=== PATIENT | female | born 1995 | race African-American/Black ===

== ENCOUNTER 2017-01-15 11:45 | Emergency (ER) | payer SELFPAY ==
[2017-01-15] MEDS ORDERED: FAMOTIDINE 20 MG TABLET PO ONE (12:10)
[2017-01-15] MEDS ORDERED: PREDNISONE 20 MG TABLET PO ONE (12:10)
[2017-01-15] MEDS ORDERED: LIDOCAINE 5% (700 MG) TRANSDERMAL ADH..PATCH TP ONE (12:10)
--- NOTE | 2017-01-15 12:12 | ER Document Report ---
HPI - HPI Patient complains to provider of: Low back pain and skin rash Onset: Other Onset/Duration: Persistent Quality of pain: Achy Pain Level: 3 Context: Patient resents complaining of low back pain for the past 3 months. Patient denies any injury. Patient denies any urinary symptoms. Patient states that her back pain gets aggravated when she is at work and she has to bend over frequently to help alleviate her back pain symptoms. Patient states that she has had skin rash to her chest and abdomen area that started yesterday and is pruritic in nature. Patient denies any new foods, lotions or detergents. Patient denies any difficulty breathing or facial swelling. Associated Symptoms: Other - Skin rash, low back pain. denies: Fever, Headache , Vomiting Exacerbated by: Movement Relieved by: Denies Similar symptoms previously: No Recently seen / treated by doctor: No - ROS ROS below otherwise negative: Yes Systems Reviewed and Negative: Yes All other systems reviewed and negative - CONSTITUTIONAL Constitutional: DENIES: Fever, Chills - EENT EENT: DENIES: Sore Throat - NEURO Neurology: DENIES: Headache - CARDIOVASCULAR Cardiovascular: DENIES: Chest pain - RESPIRATORY Respiratory: DENIES: Trouble Breathing, Coughing - GASTROINTESTINAL Gastrointestinal: DENIES: Nausea - MUSCULOSKELETAL Musculoskeletal: REPORTS: Back Pain - DERM Skin Color: Normal Skin Problems: Rash Past Medical History - General Information source: Patient - Social History Smoking Status: Current Every Day Smoker Chew tobacco use (# tins/day): No Frequency of alcohol use: None Drug Abuse: None Occupation: Retail Family History: Reviewed & Not Pertinent - Medical History Medical History: Negative Renal/ Medical History: Denies: Hx Peritoneal Dialysis Surgical Hx: Negative - Immunizations Hx Diphtheria, Pertussis, Tetanus Vaccination: Yes Vertical Provider Document - CONSTITUTIONAL Agree With Documented VS: Yes Exam Limitations: No Limitations General Appearance: WD/WN, No Apparent Distress - INFECTION CONTROL TRAVEL OUTSIDE OF THE [place] IN LAST 30 DAYS: No - HEENT HEENT: Atraumatic, Normal ENT Exam, Normocephalic Notes: No angioedema, no potential airway compromise - NECK Neck: Normal Inspection, Supple. negative: Lymphadenopathy-Left, Lymphadenopathy-Right - RESPIRATORY Respiratory: Breath Sounds Normal, No Respiratory Distress, Chest Non-Tender O2 Sat by Pulse Oximetry: 96 - CARDIOVASCULAR Cardiovascular: Regular Rate, Regular Rhythm, No Murmur - GI/ABDOMEN Gastrointestinal: Abdomen Soft - BACK Back: Abnormal Inspection - Lower lumbar paraspinal tenderness, no midline tenderness, step-off or deformity. negative: CVA Tenderness-Right, CVA Tenderness-Left - MUSCULOSKELETAL/EXTREMETIES Musculoskeletal/Extremeties: ARLETTE CAPELLAN - NEURO Level of Consciousness: Awake, Alert, Appropriate Motor/Sensory: No Motor Deficit - DERM Integumentary: Warm, Dry, Rash - Urticarial skin rash to chest and abdomen Course - Re-evaluation Re-evalutation: 01/15/17 13:17 Patient advised of glucose in urine, patient states she is diabetic but ran out of her metformin. 01/15/17 13:17 The patient presents with low back pain without signs of spinal cord compression , cauda equina syndrome, infection, aneurysm, or other serious etiology. The patient is neurologically intact. Given the extremely risk of these diagnoses further testing and evaluation for these possibilities does not appear to be indicated at this time. Patient has been instructed to return if the symptoms worsen or change in any way. - Vital Signs Vital signs: Temp Pulse Resp BP Pulse Ox 98.5 F 98 16 133/75 H 96 01/15/17 11:50 01/15/17 11:50 01/15/17 11:50 01/15/17 11:50 01/15/17 11:50 Discharge - Discharge Clinical Impression: Urticaria, Hx of diabetes mellitus Low back pain Qualifiers: Chronicity: unspecified Back pain laterality: bilateral Sciatica presence: without sciatica Qualified Code(s): M54.5 - Low back pain Condition: Stable Disposition: HOME, SELF-CARE Instructions: Acute Urticaria ([facility]), Diabetes ([facility]), Use of Diphenhydramine, Glucophage ([facility]), Ice Packs ([facility]), Low Back Pain ([facility]), Steroid Medication, Warm Packs ([facility]) Additional Instructions: Return immediately for any new or worsening symptoms Followup with your primary care provider, call tomorrow to make a followup appointment Prescriptions: Cyclobenzaprine HCl [Flexeril 10 Mg Tablet] 10 mg PO TID #15 tablet Famotidine [Pepcid 20 mg Tablet] 20 mg PO BID #12 tablet Metformin HCl [Glucophage 500 mg Tablet] 500 mg PO BID #60 tablet Naproxen [Naprosyn 250 Nmg Tablet] 1 tab PO BID #14 tablet Prednisone [Deltasone 10 mg Tablet] 10 mg PO ASDIR PRN #21 tablet PRN Reason: Forms: Return to Work Referrals: [facility] [Provider Group] - Follow up tomorrow
[2017-01-15] MEDS ORDERED: KETOROLAC TROMETHAMINE 60 MG/2 ML SDV IM ONE (12:54)
[2017-01-15 12:57] LABS: APPEARANCE,URINE CLEAR; BILIRUBIN,URINE NEGATIVE (NEGATIVE); GLUCOSE, URINE >=500 mg/dL (NEGATIVE); KETONES,URINE NEGATIVE (NEGATIVE); LEUKOCYTE ESTERASE,URINE NEGATIVE (NEGATIVE); NITRITE,URINE NEGATIVE (NEGATIVE); PROTEIN,URINE NEGATIVE (NEGATIVE); UROBILINOGEN,URINE NEGATIVE mg/dL (<2.0)
[2017-01-15 13:29] VITALS: BP 122/68
== END 2017-01-15 13:28 | disposition home or self-care (01) ==
LOC: ER 11:45
DX: M54.5 Low back pain (principal); L50.9 Urticaria, unspecified; E11.9 Type 2 diabetes mellitus without complications; R21 Rash and other nonspecific skin eruption; F17.200 Nicotine dependence, unspecified, uncomplicated
CPT/HCPCS: 99283; 96372; 81001; J1885; J7512

== ENCOUNTER 2017-05-13 12:00 | Emergency (ER) | payer SELFPAY ==
[2017-05-13 12:49] VITALS: BP 117/72
[2017-05-13] MEDS ORDERED: DIPHENHYDRAMINE HCL 25 MG CAPSULE PO ONE (13:44)
[2017-05-13] MEDS ORDERED: PREDNISONE 20 MG TABLET PO ONE (13:44)
--- NOTE | 2017-05-13 13:49 | ER Document Report ---
ED Skin Rash/Insect Bite/Abscs - General Chief Complaint: Rash Stated Complaint: RASH Time Seen by Provider: 05/13/17 13:38 Mode of Arrival: Ambulatory Information source: Patient TRAVEL OUTSIDE OF THE [place] IN LAST 30 DAYS: No - HPI Patient complains to provider of: Skin rash/lesion Onset: Yesterday Onset/Duration: Sudden Quality of pain: No pain Severity: Moderate Skin Character: Erythema Quality of rash: Itchy Identify cause: No Notes: Patient arrives with complaints of hive type rash to the right upper arm, right lower leg. She states that the area is red, swollen and itchy. She denies any difficulty breathing or swallowing. She denies any nausea, vomiting, diarrhea. She denies any new soaps, detergents, lotions, medications, foods. She states that she has had an episode similar to this in the past. She is unaware of any specific allergies. She denies any tongue swelling or lip swelling. She has tried no medications. She denies any other complaints at this time. - Related Data Allergies/Adverse Reactions: No Known Allergies Allergy (Verified 02/24/17 21:52) Past Medical History - Social History Smoking Status: Unknown if Ever Smoked Family History: Reviewed & Not Pertinent Endocrine Medical History: Reports: Hx Diabetes Mellitus Type 2 - no currently taking medication Renal/ Medical History: Denies: Hx Peritoneal Dialysis - Immunizations Hx Diphtheria, Pertussis, Tetanus Vaccination: Yes Review of Systems - Review of Systems -: Yes All other systems reviewed and negative Physical Exam - Vital signs Vitals: Temp Pulse Resp BP Pulse Ox 97.5 F 88 18 117/72 98 05/13/17 12:48 05/13/17 12:48 05/13/17 12:48 05/13/17 12:48 05/13/17 12:48 - Notes Notes: GENERAL: alert, cooperative, nontoxic, no distress. HEAD: normocephalic, atraumatic EYES: conjunctiva pink without discharge, no external redness or swelling. EARS: no external swelling, no external redness NOSE: atraumatic, no external swelling MOUTH/THROAT: mucous membranes moist and pink. No intraoral lesions. No tongue or lip swelling. No trismus or drooling. NECK: soft, supple, full range of motion, no meningismus. CHEST: no distress, lungs clear and equal throughout. No wheezing, rales, rhonchi. CARDIAC: regular rate and rhythm, no murmur, normal capillary refill, normal pulses. BACK: full range of motion, no CVA tenderness. EXTREMITIES: full range of motion of all extremities. No redness, no swelling. NEURO: alert and oriented 3, no focal deficits, full range of motion of all extremities. PYSCH: appropriate mood, affect. Patient is cooperative. SKIN: pink, warm, dry. Large urticarial lesions to the right deltoid, right anterior chest, right lateral thigh. No abscess. No target lesions. No petechiae. No vesicles. Nontender to palpation. No sloughing of the skin. Course - Re-evaluation Re-evalutation: 05/13/17 13:46 Patient is nontoxic appearing with stable vitals. The patient has an urticarial rash to the arm and leg. Most likely consistent with an allergic reaction. She is in no distress, no lip or tongue swelling, no difficulty breathing or swallowing. She has no other systemic symptoms. Patient will be given a dose of prednisone and steroids here in the emergency department will be discharged home with a prescription for prednisone and instructions to take [id number] antihistamines. Follow-up if not improving in the next 3 days , sooner for worsening symptoms, high fever, difficulty breathing or swallowing , or for any further concerns. Patient will be referred to primary care in hopes that she can get established with an trauma coordinator for possible allergy testing since she has had 2 episodes of this. The patient's emergency department workup and current diagnosis were explained to the patient and or family. Follow-up instructions were provided. Medications if prescribed were discussed. Instructions for when to return to the emergency department including specific worrisome symptoms were discussed with the patient and/or family. - Vital Signs Vital signs: Temp Pulse Resp BP Pulse Ox 97.5 F 88 18 117/72 98 05/13/17 12:48 05/13/17 12:48 05/13/17 12:48 05/13/17 12:48 05/13/17 12:48 Discharge - Discharge Clinical Impression: Urticaria Condition: Stable Disposition: HOME, SELF-CARE Instructions: Acute Urticaria ([facility]) Additional Instructions: Take medications as prescribed. Take [id number] antihistamine such as Benadryl as directed. Apply ice or cool compresses to the rash. Follow-up if not improving in the next 3 days, sooner for worsening rash, high fever, difficulty breathing or swallowing, or for any further concerns. Prescriptions: Prednisone [Deltasone 20 mg Tablet] 3 tab PO DAILY 5 Days tablet Forms: Smoking Cessation Education Referrals: [facility] [Provider Group] - Follow up as needed
== END 2017-05-13 13:40 | disposition home or self-care (01) ==
LOC: ER 12:00
DX: L50.9 Urticaria, unspecified (principal); E11.9 Type 2 diabetes mellitus without complications
CPT/HCPCS: 99282; J7512

== ENCOUNTER 2017-06-10 15:30 | Emergency (ER) | payer SELFPAY ==
[2017-06-10] MEDS ORDERED: IBUPROFEN 800 MG TABLET PO ONE (17:07)
--- NOTE | 2017-06-10 17:13 | ER Document Report ---
ED Extremity Problem, Lower - General Chief Complaint: Foot Pain Stated Complaint: FOOT PAIN Time Seen by Provider: 06/10/17 16:39 Mode of Arrival: Ambulatory Information source: Patient Notes: 22-year-old female presents to ED for complaint left foot pain. She states she got up to the bathroom last night and fell she states she been in her foot and felt like there was something in the bottom of her foot. She states she went to work this morning and has been working on her foot she is able to walk with the even steady gait. But she states she is having extreme pain to her foot and is now running up her ankle. She states she took 400 mg of ibuprofen last night for the pain TRAVEL OUTSIDE OF THE [place] IN LAST 30 DAYS: No - HPI Patient complains to provider of: Injury, Pain Location: Ankle, Foot Occurred: This morning Where: Indoors - 4 AM Onset/Duration: Gradual Quality of pain: Sharp Severity: Moderate Pain Level: 4 Context: Fell Recent injury: Possibly Associated symptoms: Painful ambulation Exacerbated by: Hanging down, Movement, Walking Relieved by: Nothing - Related Data Allergies/Adverse Reactions: No Known Allergies Allergy (Verified 06/10/17 15:38) Past Medical History - General Information source: Patient - Social History Smoking Status: Current Every Day Smoker Cigarette use (# per day): Yes - 5 cigarettes a day Chew tobacco use (# tins/day): No Smoking Education Provided: Yes - 4 minutes Frequency of alcohol use: Occasional Drug Abuse: None Occupation: [employer] Lives with: Alone Family History: Arthritis, DM, Hypertension. denies: CAD, COPD, CVA, Hyperlipidemia, Malignancy, Thyroid Disfunction Patient has suicidal ideation: No Patient has homicidal ideation: No - Past Medical History Cardiac Medical History: Reports: None Pulmonary Medical History: Reports: None EENT Medical History: Reports: None Neurological Medical History: Reports: None Endocrine Medical History: Reports: Hx Diabetes Mellitus Type 2 - no currently taking medication Renal/ Medical History: Reports: None Malignancy Medical History: Reports: None GI Medical History: Reports: None Musculoskeltal Medical History: Reports None Skin Medical History: Reports None Psychiatric Medical History: Reports: None Traumatic Medical History: Reports: None Infectious Medical History: Reports: None Surgical Hx: Negative Past Surgical History: Reports: None - Immunizations Immunizations up to date: Yes Hx Diphtheria, Pertussis, Tetanus Vaccination: Yes Review of Systems - Review of Systems Notes: Constitutional: [PRESENT: as per HPI. ABSENT: chills, fever(s), headache(s), weight gain, weight loss] Eyes: [ABSENT: visual disturbances] Ears: [ABSENT: hearing changes] Cardiovascular: [ABSENT: chest pain, dyspnea on exertion, edema, orthropnea, palpitations] Respiratory: [ABSENT: cough, hemoptysis] Gastrointestinal: [ABSENT: abdominal pain, constipation, diarrhea, hematemesis, hematochezia, nausea, vomiting] Genitourinary: [ABSENT: dysuria, hematuria] Musculoskeletal: Pain to left foot and ankle no swelling noted Integumentary: [ABSENT: rash, wounds] Neurological: [ABSENT: abnormal gait, abnormal speech, confusion, dizziness, focal weakness, syncope] Psychiatric: [ABSENT: anxiety, depression, homicidal ideation, suicidal ideation ] Endocrine: [ABSENT: cold intolerance, heat intolerance, menstrual abnormalities , polydipsia, polyuria] Hematologic/Lymphatic: [ABSENT: easy bleeding, easy bruising, lymphadenopathy] Physical Exam - Vital signs Vitals: Temp Pulse BP Pulse Ox 98.9 F 108 H 125/79 98 06/10/17 15:42 06/10/17 15:42 06/10/17 15:42 06/10/17 15:42 - Notes Notes: PHYSICAL EXAMINATION: GENERAL: Well-appearing, well-nourished and in no acute distress. HEAD: Atraumatic, normocephalic. EYES: Pupils equal round and reactive to light, extraocular movements intact, conjunctiva are normal. ENT: Nares patent, oropharynx clear without exudates. Moist mucous membranes. NECK: Normal range of motion, supple without lymphadenopathy LUNGS: Breath sounds clear to auscultation bilaterally and equal. No wheezes rales or rhonchi. HEART: Regular rate and rhythm without murmurs ABDOMEN: Soft, nontender, nondistended abdomen. No guarding, no rebound. No masses appreciated. Female : deferred Musculoskeletal: Normal range of motion, no pitting or edema. No cyanosis. Tenderness to left metacarpals. She states when you palpate the foot that it causes pain to go up the leg. NEUROLOGICAL: Cranial nerves grossly intact. Normal speech, normal gait. Normal sensory, motor exams PSYCH: Normal mood, normal affect. SKIN: Warm, Dry, normal turgor, no rashes or lesions noted. - General General appearance: Alert - Extremities General lower extremity: No: Julio Cesar's sign Course - Vital Signs Vital signs: Temp Pulse Resp BP Pulse Ox 98.9 F 88 16 120/70 96 06/10/17 15:42 06/10/17 18:00 06/10/17 18:00 06/10/17 18:00 06/10/17 18:00 Discharge - Discharge Clinical Impression: Left foot pain Condition: Stable Disposition: HOME, SELF-CARE Additional Instructions: You were seen today for sharp pains in your left foot since yesterday. Your x-rays do not show any radiological injuries to your foot. There is no redness or swelling or any signs of infection to your foot. You do have calluses to your foot. I have recommended that she use some Epson salt soaks for your foot pain and follow-up with a podiatry professor. I would be careful treating your feet yourself as you have a history of diabetes. Ibuprofen Ibuprofen is an excellent, safe drug for pain control. In addition, it has potent antiinflammatory effects which are beneficial, especially in the treatment of injuries, arthritis, or tendonitis. It's best to take ibuprofen with food. Persons with ulcer disease or allergy to aspirin should notify their physician of this before taking ibuprofen. Take the medication exactly as prescribed. Don't take additional doses unless instructed to do so by your doctor. If you develop wheezing, shortness of breath, hives, faintness, stomach pain, vomiting, or dark black stools, return for re-evaluation at once. Epsom Salt Soaks Soak the wound area in a container of warm epsom salt water. If you can't get the wound area into a bucket or glass, use a folded towel soaked in the epsom salt solution and apply to the area. Use clean hot tap water (about the temperature of a very warm bath), mixing in about one (1) teaspoon for every pint of water. Two gallon --> 16 teaspoons Epsom Salts One gallon --> 8 teaspoons Epsom Salts Two quarts --> 4 teaspoons Epsom Salts One quart --> 2 teaspoons Epsom Salts Soak the wound for about 20 minutes while gently moving it around in the water. Repeat this four (4) times a day. Ice & Elevation Apply ice packs frequently against the painful area. Many different schedules are recommended, such as "20 minutes on, 20 minutes off" or "one hour ice, two hours rest." If you need to work, you may need to go longer between ice treatments. You should plan to have the area ice packed AT LEAST one- fourth of the time. The ice should be applied over the wrap, tape, or splint, or over a layer of cloth -- not directly against the skin. Some ice bags have a built-in cloth and can be put directly on the skin. Your injured part should be elevated as much as possible over the next 48 hours. Try to keep the injury above the level of the heart. Avoid use of the injured area. Elevation and rest will decrease the swelling. FOLLOW-UP CARE: If you have been referred to a physician for follow-up care, call the physician s office for an appointment as you were instructed or within the next two days. If you experience worsening or a significant change in your symptoms, notify the physician immediately or return to the Emergency Department at any time for re-evaluation. Prescriptions: Ibuprofen 600 mg PO Q8HP PRN #20 tablet PRN Reason: Referrals: JOHNATHON FOX DPM [ACTIVE STAFF] - Follow up as needed
--- NOTE | 2017-06-10 17:44 | RADIOLOGY REPORT (SQ) ---
EXAM DESCRIPTION: FOOT LEFT COMPLETE COMPLETED DATE/TIME: 06/10/2017 5:35 pm REASON FOR STUDY: pain fall COMPARISON: None. NUMBER OF VIEWS: Three views. TECHNIQUE: AP, lateral and oblique radiographic images acquired of the left foot. LIMITATIONS: None. FINDINGS: MINERALIZATION: Normal. BONES: No acute fracture or dislocation. No worrisome bone lesions. JOINTS: No effusions. SOFT TISSUES: No soft tissue swelling. No foreign body. OTHER: No other significant finding. IMPRESSION: NO RADIOGRAPHIC EVIDENCE OF ACUTE INJURY. TECHNICAL DOCUMENTATION: JOB ID: [id number] [employer]- All Rights Reserved
[2017-06-10 18:45] VITALS: BP 120/70
== END 2017-06-10 18:10 | disposition home or self-care (01) ==
LOC: ER 15:30
DX: M79.672 Pain in left foot (principal); W19.XXXA Unspecified fall, initial encounter; F17.210 Nicotine dependence, cigarettes, uncomplicated
CPT/HCPCS: 99283; 99406

== ENCOUNTER 2018-06-15 14:19 | Emergency (ER) | payer SELFPAY ==
[2018-06-15] MEDS ORDERED: ACETAMINOPHEN 325 MG TABLET PO ONE (16:18)
[2018-06-15] MEDS ORDERED: CEFTRIAXONE 1 GM/D5W RTU 1 GM/50 ML RTUPB IV ONE (16:18)
[2018-06-15] MEDS ORDERED: NORMAL SALINE 1000 ML 2,000 ML IV ONE (16:18)
[2018-06-15] MEDS ORDERED: MORPHINE SULFATE 10 MG/ML INJ IV ONE ×2 (16:19→18:29)
[2018-06-15] MEDS ORDERED: ONDANSETRON HCL INJ/PF 4 MG/2 ML SDV IV ONE (16:20)
--- NOTE | 2018-06-15 16:22 | ER Document Report ---
ED Skin Rash/Insect Bite/Abscs - General Chief Complaint: Arm Pain Stated Complaint: LEFT ARM PAIN Time Seen by Provider: 06/15/18 15:57 Primary Care Provider: JULIET [facility] [Provider Group] - Follow up as needed [facility] [Provider Group] - Follow up as needed Mode of Arrival: Ambulatory Information source: Patient Notes: Patient presents complaining of infection under her left axilla that is been developing over the past week. Patient states she had a fever today. Patient reports seeing her primary doctor for this issue 3 days ago and being placed on antibiotics. Patient denies any improvement of her symptoms. Patient does report that her blood sugar has been running elevated at home. TRAVEL OUTSIDE OF THE [place] IN LAST 30 DAYS: No - HPI Patient complains to provider of: Tender/swollen area Onset/Duration: Worse Quality of pain: Sharp Pain Level: 5 Skin Character: Abscess, Swelling, Tenderness Skin Temperature: Warm Quality of rash: Painful Identify cause: No Exacerbated by: Movement Relieved by: Denies Similar symptoms previously: No Recently seen / treated by doctor: Yes - Related Data Allergies/Adverse Reactions: No Known Allergies Allergy (Verified 06/15/18 14:21) Past Medical History - General Information source: Patient - Social History Smoking Status: Current Every Day Smoker Smoking Education Provided: Yes Frequency of alcohol use: None Drug Abuse: None Occupation: Retail Family History: Arthritis, DM, Hypertension. denies: CAD, COPD, CVA, Hyperlipidemia, Malignancy, Thyroid Disfunction Patient has suicidal ideation: No Patient has homicidal ideation: No Endocrine Medical History: Reports: Hx Diabetes Mellitus Type 2 Renal/ Medical History: Denies: Hx Peritoneal Dialysis Surgical Hx: Negative - Immunizations Immunizations up to date: Yes Hx Diphtheria, Pertussis, Tetanus Vaccination: Yes Review of Systems - Review of Systems Constitutional: Fever EENT: No symptoms reported Cardiovascular: No symptoms reported. denies: Chest pain Respiratory: No symptoms reported. denies: Cough, Short of breath Gastrointestinal: No symptoms reported. denies: Vomiting Genitourinary: No symptoms reported Female Genitourinary: No symptoms reported Musculoskeletal: No symptoms reported. denies: Back pain Skin: Other - Abscess to left axilla Hematologic/Lymphatic: No symptoms reported Neurological/Psychological: No symptoms reported Physical Exam - Vital signs Vitals: Temp Pulse Resp BP Pulse Ox 100.3 F 124 H 14 135/83 H 97 06/15/18 14:36 06/15/18 14:36 06/15/18 14:36 06/15/18 14:36 06/15/18 14:36 - General General appearance: Appears well, Alert In distress: Mild - HEENT Head: Normocephalic, Atraumatic Eyes: Normal Conjunctiva: Normal Nasal: Normal Mouth/Lips: Normal Mucous membranes: Normal Neck: Normal, Supple. No: Lymphadenopathy - Respiratory Respiratory status: No respiratory distress Chest status: Nontender Breath sounds: Normal. No: Rales, Rhonchi, Stridor, Wheezing Chest palpation: Normal - Cardiovascular Rhythm: Tachycardia Heart sounds: S1 appreciated, S2 appreciated Murmur: No - Back Back: Normal - Extremities General upper extremity: Tender - L axilla, Normal strength General lower extremity: Normal inspection, Normal strength - Neurological Neuro grossly intact: Yes Cognition: Normal [place] Coma Scale Eye Opening: Spontaneous [place] Coma Scale Verbal: Oriented [place] Coma Scale Motor: Obeys Commands [place] Coma Scale Total: 15 - Psychological Associated symptoms: Normal affect, Normal mood - Skin Skin Temperature: Warm Skin Moisture: Dry Skin irregularity: Abscess - Large abscess to left axilla with central fluctuant area surrounded by a large area of induration. Course - Re-evaluation Re-evalutation: 06/15/18 16:20 Dr. Valderrama to bedside with ultrasound for examination. Agrees with plan for bedside incision and drainage procedure. No surgical consultation advised at this time. 06/15/18 19:21 Incision and drainage procedure performed. Patient with large amount of purulent drainage. Patient tolerated procedure well. Labs reviewed, no concern for sepsis at this time. Patient educated on new or worsening symptoms return m edially for. Patient advised that infection may make her blood sugar elevated. - Vital Signs Vital signs: Temp Pulse Resp BP Pulse Ox 99.1 F 95 21 H 125/73 96 06/15/18 19:53 06/15/18 19:55 06/15/18 19:53 06/15/18 19:53 06/15/18 19:53 - Laboratory Result Diagrams: 06/15/18 17:00 06/15/18 17:00 Laboratory results interpreted by me: 06/15/18 06/15/18 06/15/18 15:20 17:00 17:00 WBC 17.7 H RBC 5.45 H MCV 79 L MCH 26.5 L Lymphocytes % 11.6 L Absolute Neutrophils 13.7 H Absolute Monocytes 1.8 H Sodium 132.0 L Chloride 96 L Glucose 266 H Alkaline Phosphatase 143 H Urine Protein 100 H Urine Glucose (UA) >=500 H Urine Ketones 20 H Urine Blood LARGE H Urine Urobilinogen 2.0 H Labs- Entire Visit 06/15/18 06/15/18 06/15/18 15:20 17:00 17:00 WBC 17.7 H RBC 5.45 H Hgb 14.4 Hct 43.2 MCV 79 L MCH 26.5 L MCHC 33.5 RDW 13.9 Plt Count 282 Seg Neutrophils % 77.7 Lymphocytes % 11.6 L Monocytes % 10.3 Eosinophils % 0.2 Basophils % 0.2 Absolute Neutrophils 13.7 H Absolute Lymphocytes 2.1 Absolute Monocytes 1.8 H Absolute Eosinophils 0.0 Absolute Basophils 0.0 PT 14.5 INR 1.08 VBG pH VBG pCO2 VBG HCO3 VBG Base Excess Sodium Potassium Chloride Carbon Dioxide Anion Gap BUN Creatinine Est GFR ( Amer) Est GFR (Non-Af Amer) Glucose Lactic Acid Calcium Total Bilirubin Direct Bilirubin Neonat Total Bilirubin Neonat Direct Bilirubin Neonat Indirect Bili AST ALT Alkaline Phosphatase Total Protein Albumin Urine Color YELLOW Urine Appearance SLIGHTLY-CLOUDY Urine pH 6.0 Ur Specific [place] 1.023 Urine Protein 100 H Urine Glucose (UA) >=500 H Urine Ketones 20 H Urine Blood LARGE H Urine Nitrite NEGATIVE Urine Bilirubin NEGATIVE Urine Urobilinogen 2.0 H Ur Leukocyte Esterase NEGATIVE Urine WBC (Auto) 2 Urine RBC (Auto) 9 Squamous Epi Cells Auto 3 Urine Mucus (Auto) OCC Urine Ascorbic Acid NEGATIVE 06/15/18 06/15/18 06/15/18 17:00 17:00 17:00 WBC RBC Hgb Hct MCV MCH MCHC RDW Plt Count Seg Neutrophils % Lymphocytes % Monocytes % Eosinophils % Basophils % Absolute Neutrophils Absolute Lymphocytes Absolute Monocytes Absolute Eosinophils Absolute Basophils PT INR VBG pH 7.41 VBG pCO2 44.0 VBG HCO3 27.1 VBG Base Excess 2.0 Sodium 132.0 L Potassium 3.8 Chloride 96 L Carbon Dioxide 27 Anion Gap 9 BUN 10 Creatinine 0.55 Est GFR ( Amer) > 60 Est GFR (Non-Af Amer) > 60 Glucose 266 H Lactic Acid 0.9 Calcium 9.6 Total Bilirubin 0.7 Direct Bilirubin 0.2 Neonat Total Bilirubin Not Reportable Neonat Direct Bilirubin Not Reportable Neonat Indirect Bili Not Reportable AST 14 ALT 23 Alkaline Phosphatase 143 H Total Protein 7.1 Albumin 4.2 Urine Color Urine Appearance Urine pH Ur Specific [place] Urine Protein Urine Glucose (UA) Urine Ketones Urine Blood Urine Nitrite Urine Bilirubin Urine Urobilinogen Ur Leukocyte Esterase Urine WBC (Auto) Urine RBC (Auto) Squamous Epi Cells Auto Urine Mucus (Auto) Urine Ascorbic Acid - Diagnostic Test Radiology reviewed: Reports reviewed - EKG Interpretation by Me EKG shows normal: Sinus rhythm Rate: Tachycardia Procedures - Incision and Drainage Left Arm Type: Simple Anesthetic type: 1% Lidocaine Blade size: 11 I&D procedure: Betadine prep applied Incision Method: Incision made by scalpel Amount/type of drainage: Large amount of purulent drainage from abscess Discharge - Discharge Clinical Impression: Abscess, Encounter for incision and drainage procedure, Hyperglycemia Condition: Stable Disposition: HOME, SELF-CARE Instructions: Abscess ([facility]), Cephalexin ([facility]), Oral Narcotic Medication ([facility]), Post Incision and Drainage, Trimethoprim-Sulfa ([facility]) Additional Instructions: Return immediately for any new or worsening symptoms Followup with your primary care provider, call tomorrow to make a followup appointment Change dressing daily Continue to take your Keflex as previously prescribed. You should also take the Bactrim that was prescribed this evening. Return for any new or worsening symptoms, persistent fever or lack of improvement. Prescriptions: Oxycodone HCl/Acetaminophen [Percocet 5-325 mg Tablet] 1 tab PO ASDIR PRN #10 tablet PRN Reason: Sulfamethoxazole/Trimethoprim [Bactrim Ds Tablet] 1 each PO BID #20 tablet Forms: Smoking Cessation Education, Return to Work Referrals: [facility] [Provider Group] - Follow up as needed [facility] [Provider Group] - Follow up as needed
--- NOTE | 2018-06-15 16:53 | RADIOLOGY REPORT (SQ) ---
EXAM DESCRIPTION: CHEST 2 VIEWS COMPLETED DATE/TIME: 06/15/2018 4:33 pm REASON FOR STUDY: fever, tachycardic COMPARISON: None. EXAM PARAMETERS: NUMBER OF VIEWS: two views TECHNIQUE: Digital Frontal and Lateral radiographic views of the chest acquired. RADIATION DOSE: NA LIMITATIONS: none FINDINGS: LUNGS AND PLEURA: No opacities, masses or pneumothorax. No pleural effusion. MEDIASTINUM AND HILAR STRUCTURES: No masses or contour abnormalities. HEART AND VASCULAR STRUCTURES: Heart normal size. No evidence for failure. BONES: No acute findings. HARDWARE: None in the chest. OTHER: No other significant finding. IMPRESSION: NO ACUTE RADIOGRAPHIC FINDING IN THE CHEST. TECHNICAL DOCUMENTATION: JOB ID: [id number] [employer]- All Rights Reserved Reading location - IP/workstation name: [email or web address]
[2018-06-15 17:27] LABS: ABSOLUTE LYMPHOCYTES (AUTO) 2.1 10^3/uL (0.5-4.7); ABSOLUTE MONOCYTES (AUTO) 1.8 10^3/uL (0.1-1.4); ABSOLUTE NEUT (AUTO) 13.7 10^3/uL (1.7-8.2); BASOPHILS % (AUTO) 0.2 % (0-2); EOSINOPHILS % (AUTO) 0.2 % (0-6); HEMATOCRIT 43.2 % (36.0-47.0); HEMOGLOBIN 14.4 g/dL (12.0-15.5); LYMPHOCYTES % (AUTO) 11.6 % (13-45); MEAN CORPUSCULAR HEMOGLOBIN 26.5 pg (27.0-33.4); MEAN CORPUSCULAR HGB CONC 33.5 g/dL (32.0-36.0); MEAN CORPUSCULAR VOLUME 79 fl (80-97); MONOCYTES % (AUTO) 10.3 % (3-13); PLATELET COUNT 282 10^3/uL (150-450); RED BLOOD COUNT 5.45 10^6/uL (3.72-5.28); RED CELL DISTRIBUTION WIDTH 13.9 % (11.5-14.0); SEGMENTED NEUTROPHILS % (AUTO) 77.7 % (42-78); TOTAL CELLS COUNTED % (AUTO) 100 %; WHITE BLOOD COUNT 17.7 10^3/uL (4.0-10.5)
[2018-06-15 17:28] LABS: VENOUS BLOOD HCO3 27.1 mmol/L (20-32); VENOUS BLOOD PH 7.41 (7.30-7.42)
[2018-06-15 17:40] LABS: INTERNATIONAL RATION (INR) 1.08; PROTHROMBIN TIME 14.5 SEC (11.4-15.4)
[2018-06-15 17:52] LABS: ALANINE AMINOTRANSFERASE 23 U/L (9-52); ALBUMIN 4.2 g/dL (3.5-5.0); ALKALINE PHOSPHATASE 143 U/L (38-126); ANION GAP 9 (5-19); ASPARTATE AMINO TRANSFERASE 14 U/L (14-36); BILIRUBIN,DIRECT 0.2 mg/dL (0.0-0.4); BILIRUBIN,TOTAL 0.7 mg/dL (0.2-1.3); BLOOD UREA NITROGEN 10 mg/dL (7-20); CALCIUM 9.6 mg/dL (8.4-10.2); CARBON DIOXIDE 27 mmol/L (22-30); CHLORIDE 96 mmol/L (98-107); GLUCOSE 266 mg/dL (75-110); POTASSIUM 3.8 mmol/L (3.6-5.0); TOTAL PROTEIN 7.1 g/dL (6.3-8.2)
--- NOTE | 2018-06-15 17:54 | EKG REPORT ---
SEVERITY:- ABNORMAL ECG - SINUS TACHYCARDIA NONSPECIFIC T ABNORMALITIES, ANTERIOR LEADS : Confirmed by: Cj Dunaway MD 15-Jun-2018 17:54:11
[2018-06-15] MEDS ORDERED: SULFAMETHOXAZOLE/TRIMETHOPRIM 800-160 MG TABLET PO ONE (18:29)
[2018-06-15 18:36] LABS: APPEARANCE,URINE SLIGHTLY-CLOUDY; BILIRUBIN,URINE NEGATIVE (NEGATIVE); COLOR,URINE YELLOW; GLUCOSE, URINE >=500 mg/dL (NEGATIVE); KETONES,URINE 20 mg/dL (NEGATIVE); LEUKOCYTE ESTERASE,URINE NEGATIVE (NEGATIVE); NITRITE,URINE NEGATIVE (NEGATIVE); PROTEIN,URINE 100 mg/dL (NEGATIVE); URINE SPECIFIC GRAVITY 1.023
[2018-06-15 19:47] VITALS: BP 125/73
--- NOTE | 2018-06-16 09:41 | ER Document Report ---
Doctor's Note Notes: I personally and independently obtained patient history and examined the patient in conjunction with the APC and agree with the assessment, treatment plan and disposition of the patient as recorded by the APC, and have reviewed the APC's note. HISTORY OF PRESENT ILLNESS: Patient is a 23-year-old female that presents to the emergency department for chief complaint of abscess in the left axilla. Patient seen by her primary care recently and placed on Keflex, for an abscess in her left axilla, but symptoms got worse, it enlarged that she decided come to the emergency department. ROS: Constitutional: Negative for fever. Cardiovascular: Negative for chest pain. Respiratory: Negative for shortness of breath. Gastrointestinal: Negative for vomiting or abdominal pain Musculoskeletal: Negative for arm, leg or back pain Skin: Negative for rash. Neurological: Negative for weakness or numbness. Other than noted above, the 12 point review of systems was reviewed with the patient and were negative, all pertinent findings are included in the HPI. PHYSICAL EXAMINATION: Vital signs reviewed, nursing noted reviewed. GENERAL: Well-appearing, well-nourished and in no acute distress. HEAD: Atraumatic, normocephalic. EYES: Eyes appear normal, conjunctiva are normal. ENT: nares patent, oropharynx clear without exudates. Moist mucous membranes. NECK: Normal range of motion, supple without lymphadenopathy LUNGS: Breath sounds clear to auscultation bilaterally and equal. No wheezes rales or rhonchi. HEART: Regular rate and rhythm without murmurs ABDOMEN: Soft, nontender, normoactive bowel sounds. No rebound, guarding, or rigidity. No masses appreciated. EXTREMITIES: Under the left axilla, there is a fluctuant abscess, with surrounding induration, tender to palpate and mild erythema associated as well. No active drainage at this time, no axillary lymphadenopathy was appreciated, the rest the patient's extremity exam is grossly unremarkable. NEUROLOGICAL: No focal neurological deficits. Moves all extremities spontaneously Motor and sensory grossly intact on exam. PSYCH: Normal mood, normal affect. SKIN: Warm, Dry, normal turgor, no rashes or lesions noted on exposed MEDICAL DECISION MAKING: Patient seen and examined, vital signs reviewed, under ultrasound, the patient's right axilla was examined, there is a 3-1/2 x 3-1/2 x 2 cm abscess noted with surrounding induration, discussed with Jo NUNEZ that I feel that this could be I indeed in the emergency department, which she agreed, patient had an I&D performed, tolerated well, and was discharged home on antibiotics. Please review detail APC documentation. *Note is created using voice recognition software and may contain spelling, syntax or grammatical errors.
== END 2018-06-15 19:55 | disposition home or self-care (01) ==
LOC: ER 14:19
PROC: 0H9CXZZ Drainage of Left Upper Arm Skin, External Approach (ICD-10-PCS; principal; 2018-06-15)
DX: L02.412 Cutaneous abscess of left axilla (principal); E11.65 Type 2 diabetes mellitus with hyperglycemia; R50.9 Fever, unspecified; F17.200 Nicotine dependence, unspecified, uncomplicated
CPT/HCPCS: 93005; 96376; 99284; 96375; 96365; 36415; 87040; 87086; 82962; 85025; 85610; 87088; 80053; 81001; 87186; 82803; 83605; 71046; 93010; 10060; J2270; J2405; J7030; J0696

== ENCOUNTER 2018-08-31 10:53 | Emergency (ER) | payer SELFPAY ==
[2018-08-31 13:12] LABS: APPEARANCE,URINE SLIGHTLY-CLOUDY; BILIRUBIN,URINE NEGATIVE (NEGATIVE); COLOR,URINE YELLOW; GLUCOSE, URINE >=500 mg/dL (NEGATIVE); KETONES,URINE NEGATIVE (NEGATIVE); LEUKOCYTE ESTERASE,URINE SMALL (NEGATIVE); NITRITE,URINE NEGATIVE (NEGATIVE); PROTEIN,URINE 30 mg/dL (NEGATIVE); URIC ACID CRYSTALS,URINE FEW /HPF; URINE SPECIFIC GRAVITY 1.013; UROBILINOGEN,URINE NEGATIVE mg/dL (<2.0)
--- NOTE | 2018-08-31 13:56 | ER Document Report ---
HPI - HPI Patient complains to provider of: Sharp stomach pains Time Seen by Provider: 08/31/18 12:22 Onset: Other - 2 days Quality of pain: Sharp Severity: Severe Pain Level: 4 Context: Patient presents emergency department with complaints of sharp stomach pains for the past 2 days. Reports pain occurs after she voids. Reports urinary frequency. Denies fever vomiting reports some diarrhea for the last couple days. Denies past medical history denies vaginal discharge. Associated Symptoms: Diarrhea Exacerbated by: Other - after avoid Relieved by: Denies Similar symptoms previously: No Recently seen / treated by doctor: No - URINARY Urinary: REPORTS: Frequency - REPRODUCTIVE Reproductive: DENIES: : Past Medical History - General Information source: Patient Last Menstrual Period: July - Social History Smoking Status: Current Every Day Smoker Chew tobacco use (# tins/day): No Frequency of alcohol use: None Drug Abuse: None Family History: Arthritis, DM, Hypertension. denies: CAD, COPD, CVA, Hyperlipidemia, Malignancy, Thyroid Disfunction Patient has suicidal ideation: No Patient has homicidal ideation: No - Medical History Medical History: Negative Renal/ Medical History: Denies: Hx Peritoneal Dialysis Surgical Hx: Negative - Immunizations Immunizations up to date: Yes Hx Diphtheria, Pertussis, Tetanus Vaccination: Yes Vertical Provider Document - CONSTITUTIONAL Agree With Documented VS: Yes Exam Limitations: No Limitations General Appearance: WD/WN, No Apparent Distress - Nontoxic looking - INFECTION CONTROL TRAVEL OUTSIDE OF THE [place] IN LAST 30 DAYS: No - HEENT HEENT: Atraumatic, Normocephalic - NECK Neck: Supple - RESPIRATORY Respiratory: No Respiratory Distress - CARDIOVASCULAR Cardiovascular: Regular Rate - GI/ABDOMEN Gastrointestinal: Abdomen Soft, Abdomen Non-Tender - MUSCULOSKELETAL/EXTREMETIES Musculoskeletal/Extremeties: MAEW, FROM - NEURO Level of Consciousness: Awake, Alert, Appropriate Motor/Sensory: No Motor Deficit - DERM Integumentary: Warm, Dry Course - Re-evaluation Re-evalutation: 08/31/18 13:53 Patient's urine shows mild leukocytes moderate blood we will treat for UTI with Keflex urine culture patient instructed to monitor symptoms return for worsening pain fever vomiting. She verbalized understanding - Vital Signs Vital signs: Temp Pulse Resp BP Pulse Ox 98.1 F 82 16 129/67 H 100 08/31/18 10:59 08/31/18 10:59 08/31/18 10:59 08/31/18 10:59 08/31/18 10:59 - Laboratory Laboratory results interpreted by me: 08/31/18 12:43 Urine Protein 30 H Urine Glucose (UA) >=500 H Urine Blood MODERATE H Ur Leukocyte Esterase SMALL H Discharge - Discharge Clinical Impression: UTI (urinary tract infection) Qualifiers: Urinary tract infection type: site unspecified Hematuria presence: with hematuria Qualified Code(s): N39.0 - Urinary tract infection, site not specified Abdominal pain Qualifiers: Abdominal location: lower abdomen, unspecified Qualified Code(s): R10.30 - Lower abdominal pain, unspecified Condition: Stable Disposition: HOME, SELF-CARE Instructions: Cephalexin ([facility]), Urinary Tract Infection ([facility]) Additional Instructions: *You have been evaluated for pain while voiding, UTI *Take medication as prescribed *Push fluids *Follow up with your primary care provider for recheck within one week *Plan urine recheck in one week *Return to ED for worsening condition, changes, needs Prescriptions: Cephalexin Monohydrate [Keflex 500 mg Capsule] 500 mg PO BID #20 capsule Referrals: YOLANDA MCDOWELL MD [Primary Care Provider] - Follow up in 1 week
[2018-08-31] MEDS ORDERED: PHENAZOPYRIDINE HCL 200 MG TABLET PO ONE (13:59)
[2018-08-31 14:16] VITALS: BP 113/99
== END 2018-08-31 14:19 | disposition home or self-care (01) ==
LOC: ER 10:53
DX: N39.0 Urinary tract infection, site not specified (principal); R31.9 Hematuria, unspecified; R10.30 Lower abdominal pain, unspecified; R35.0 Frequency of micturition; R19.7 Diarrhea, unspecified; F17.200 Nicotine dependence, unspecified, uncomplicated
CPT/HCPCS: 99284; 87086; 81025; 87088; 81001; 87186; J3490

== ENCOUNTER 2018-09-09 01:40 | Emergency (ER) | payer SELFPAY ==
[2018-09-09] MEDS ORDERED: KETAMINE HCL INJ 500 MG/10 ML VIAL IV ONE (02:16)
[2018-09-09] MEDS ORDERED: LIDOCAINE 1%/EPINEPHRINE INJ 20 ML VIAL INJ ONE (02:17)
[2018-09-09] MEDS ORDERED: ONDANSETRON HCL INJ/PF 4 MG/2 ML SDV IV ONE (02:17)
[2018-09-09] MEDS ORDERED: FENTANYL CITRATE INJ/PF 100 MCG/2 ML AMPUL IV PRN (02:18)
[2018-09-09] MEDS ORDERED: PROPOFOL INJ 200 MG/20 ML VIAL IV ONE ×2 (03:04→03:15)
[2018-09-09] MEDS ORDERED: SULFAMETHOXAZOLE/TRIMETHOPRIM 800-160 MG TABLET PO ONE (03:15)
--- NOTE | 2018-09-09 03:21 | ER Document Report ---
ED General - General Chief Complaint: Abscess Stated Complaint: ABSCESS Time Seen by Provider: 09/09/18 02:03 Notes: Patient is a 23-year-old female with past medical history of type 2 diabetes, history of previous left axillary abscess who presents with 2 to 3 days of progressively worsening area of swelling and pain under her left axilla. States that the area started gradually and has gotten dramatically worse over that time. Describes a severe, throbbing, constant discomfort to the left axillary region. Touching the area worsens the pain. Nothing improves the pain. States this is much worse than her previous axillary abscess. Has not had fever or constitutional symptoms. Has not seen her primary care physician regarding today's concerns. TRAVEL OUTSIDE OF THE [place] IN LAST 30 DAYS: No - Related Data Allergies/Adverse Reactions: No Known Allergies Allergy (Verified 08/31/18 12:36) Past Medical History - General Information source: Patient - Social History Smoking Status: Never Smoker Frequency of alcohol use: None Drug Abuse: None Lives with: Alone Family History: Arthritis, DM, Hypertension. denies: CAD, COPD, CVA, Hyperlipidemia, Malignancy, Thyroid Disfunction Patient has suicidal ideation: No Patient has homicidal ideation: No Endocrine Medical History: Reports: Hx Diabetes Mellitus Type 2 Renal/ Medical History: Denies: Hx Peritoneal Dialysis - Immunizations Immunizations up to date: Yes Hx Diphtheria, Pertussis, Tetanus Vaccination: Yes Review of Systems - Review of Systems Notes: Constitutional: Negative for fever. HENT: Negative for sore throat. Eyes: Negative for visual changes. Cardiovascular: Negative for chest pain. Respiratory: Negative for shortness of breath. Gastrointestinal: Negative for abdominal pain, vomiting or diarrhea. Genitourinary: Negative for dysuria. Musculoskeletal: Negative for back pain. Skin: Positive for left axillary abscess Neurological: Negative for headaches, weakness or numbness. 10 point ROS negative except as marked above and in HPI. Physical Exam - Vital signs Vitals: Temp Pulse Resp BP Pulse Ox 98.2 F 112 H 14 144/87 H 99 09/09/18 01:41 09/09/18 01:41 09/09/18 01:41 09/09/18 01:41 09/09/18 01:41 Interpretation: Tachycardic Notes: PHYSICAL EXAMINATION: GENERAL: Appears moderately uncomfortable but in no overt distress HEAD: Atraumatic, normocephalic. EYES: Pupils equal round and reactive to light, extraocular movements intact, sclera anicteric, conjunctiva are normal. ENT: nares patent, oropharynx clear without exudates. Mildly dry mucous membranes. NECK: Normal range of motion, supple without lymphadenopathy LUNGS: Breath sounds clear to auscultation bilaterally and equal. No wheezes rales or rhonchi. HEART: Regular rate and rhythm without murmurs ABDOMEN: Soft, nontender, normoactive bowel sounds. No guarding, no rebound. No masses appreciated. EXTREMITIES: Normal range of motion, no pitting or edema. No cyanosis. NEUROLOGICAL: No focal neurological deficits. Moves all extremities spontaneously and on command. PSYCH: Normal mood, normal affect. SKIN: Warm, Dry, normal turgor, 6 x 4 cm abscess in the left axilla without surrounding erythema Course - Re-evaluation Re-evalutation: 09/09/18 03:20 Patient presented with a large 6 x 4 cm abscess in the left axilla. Patient had difficulty even bring her arm above her head secondary to pain. Bedside ultrasound did confirm a large fluid containing pocket very shallowly beneath the skin. The patient was therefore sedated using ketamine and propofol. After good sedation had been achieved the patient underwent incision and drainage with expression of approximately 20 cc of purulent drainage. The pocket was debrided, irrigated and all loculations that could be palpated were removed. The wound was packed with iodoform gauze. Patient did tolerate procedure very well without any complications. Patient will be started on trimethoprim sulf amethoxazole. At this time will discharge with return precautions and follow-up recommendations. Verbal discharge instructions given a the bedside and opportunity for questions given. Medication warnings reviewed. Patient is in agreement with this plan and has verbalized understanding of return precautions and the need for primary care follow-up in the next 24-72 hours. - Vital Signs Vital signs: Temp Pulse Resp BP Pulse Ox 98.2 F 112 H 24 H 155/98 H 100 09/09/18 01:41 09/09/18 01:41 09/09/18 03:10 09/09/18 03:05 09/09/18 03:10 Procedures - Conscious Sedation Conscious sedation Time started: 03:00 Time completed: 03:13 Consent obtained: Yes Normal healthy pt.: P1. - ASA Classification Airway Evaluation: Normal anatomy Mallampati Classification: Class 1 Used during procedure: Suction available, IV access obtained, Pulse ox on pt., conveyor monitor on pt. Medications administered: Ketamine, Diprivan Reversal agents: None I personally performed/intraservice time: Sedation, Procedure, 30 min or less Complications: No - Incision and Drainage Left Axilla Time completed: 03:13 Type: Complex, Single Anesthetic type: 1% Lidocaine mL's of anesthetic: 5 Blade size: 11 I&D procedure: Chlorprep applied, Iodoform packing placed Incision Method: Incision made by scalpel Amount/type of drainage: 20 cc purulent drainage Discharge - Discharge Clinical Impression: Abscess of left axilla Condition: Good Disposition: HOME, SELF-CARE Additional Instructions: You were seen for an abscess that required drainage. Remove the packing if it has not fallen out within 48 hours. Take all antibiotics as prescribed. Please return if you develop fever of greater than 100.4, vomiting, the pain at the site worsens, you notice spreading redness from the area, or you have any other symptoms that are concerning to you. Please follow-up with your primary care doctor within the next 24 to 48 hours. Prescriptions: Sulfamethoxazole/Trimethoprim [Bactrim Ds Tablet] 2 tab PO BID #28 tablet Forms: Return to Work
[2018-09-09 04:03] VITALS: BP 135/83
== END 2018-09-09 04:24 | disposition home or self-care (01) ==
LOC: ER 01:40
DX: L02.412 Cutaneous abscess of left axilla (principal); E11.9 Type 2 diabetes mellitus without complications
CPT/HCPCS: 99283; 99152; 96374; 96375; 10061; J3010; J3490; J2405; J2704

== ENCOUNTER 2018-09-12 12:01 | Emergency (ER) | payer SELFPAY ==
[2018-09-12 12:12] VITALS: BP 127/73
[2018-09-12] MEDS ORDERED: OXYCODONE-ACETAMINOPHEN 5-325 MG TABLET PO ONE (13:34)
--- NOTE | 2018-09-12 13:48 | ER Document Report ---
HPI - HPI Time Seen by Provider: 09/12/18 12:57 Pain Level: 5 Notes: Patient is a 23-year-old female presenting with request for packing removal. Patient had abscess to her left axilla packed 3 days ago. She states that she was told to remove the packing on her own. Patient states she was unable to tolerate this. Patient denies any fevers, states that she is compliant with taking her antibiotics. She does state that there has been quite a bit of drainage on her dressings and she has been changing her dressings at least 3 times daily. - CONSTITUTIONAL Constitutional: DENIES: Fever, Chills - EENT EENT: DENIES: Sore Throat, Ear Pain, Eye problems - NEURO Neurology: DENIES: Headache, Weakness, Vision blurred, Dizzinesss / Vertigo - CARDIOVASCULAR Cardiovascular: DENIES: Chest pain - RESPIRATORY Respiratory: DENIES: Trouble Breathing, Coughing - GASTROINTESTINAL Gastrointestinal: DENIES: Abdominal Pain, Black / Bloody Stools - URINARY Urinary: DENIES: Dysuria, Urgency, Frequency - REPRODUCTIVE Reproductive: DENIES: : - MUSCULOSKELETAL Musculoskeletal: REPORTS: Extremity pain - L arm Past Medical History - General Information source: Patient - Social History Smoking Status: Current Every Day Smoker Frequency of alcohol use: None Drug Abuse: None Family History: Arthritis, DM, Hypertension. denies: CAD, COPD, CVA, Hyperlipidemia, Malignancy, Thyroid Disfunction Patient has suicidal ideation: No Patient has homicidal ideation: No Endocrine Medical History: Reports: Hx Diabetes Mellitus Type 2 Renal/ Medical History: Denies: Hx Peritoneal Dialysis - Immunizations Immunizations up to date: Yes Hx Diphtheria, Pertussis, Tetanus Vaccination: Yes Vertical Provider Document - CONSTITUTIONAL Notes: PHYSICAL EXAMINATION: GENERAL: Well-appearing, well-nourished and in no acute distress. HEAD: Atraumatic, normocephalic. EYES: Pupils equal round and reactive to light, extraocular movements intact, conjunctiva are normal. ENT: Nares patent, oropharynx clear without exudates. Moist mucous membranes. NECK: Normal range of motion, supple without lymphadenopathy LUNGS: Breath sounds clear to auscultation bilaterally and equal. No wheezes rales or rhonchi. HEART: Regular rate and rhythm without murmurs ABDOMEN: Soft, nontender, nondistended abdomen. No guarding, no rebound. No masses appreciated. Female : deferred Musculoskeletal: Normal range of motion, no pitting or edema. No cyanosis. NEUROLOGICAL: Cranial nerves grossly intact. Normal speech, normal gait. Normal sensory, motor exams PSYCH: Normal mood, normal affect. SKIN: Warm, Dry, normal turgor, no rashes or lesions noted. Tenderness to palpation to left axilla, packing in place, no surrounding erythema, induration or fluctuance. - INFECTION CONTROL TRAVEL OUTSIDE OF THE [place] IN LAST 30 DAYS: No Course - Re-evaluation Re-evalutation: Packing was removed without difficulty. There is no induration or fluctuance noted to the area. Patient tolerated well. Patient encouraged to continue taking her antibiotics as prescribed. ED return precautions were discussed and patient verbalized understanding. - Vital Signs Vital signs: Temp Pulse Resp BP Pulse Ox 98.5 F 84 18 127/73 H 97 09/12/18 12:11 09/12/18 12:11 09/12/18 12:11 09/12/18 12:11 09/12/18 12:11 Discharge - Discharge Clinical Impression: Encounter for wound re-check Condition: Stable Disposition: HOME, SELF-CARE Additional Instructions: The packing was removed from your abscess today. Please continue to apply warm compresses to the area. Please continue to take antibiotics as prescribed, finish the entire course even if your symptoms resolve. Take ibuprofen 600 mg every 6 hours for pain and inflammation. Return to the emergency department with any new or worsening symptoms to include worsening pain, increased redness or swelling to the area, fever or any other symptom that is concerning to you. Forms: Return to Work
== END 2018-09-12 13:50 | disposition home or self-care (01) ==
LOC: ER 12:01
DX: L02.412 Cutaneous abscess of left axilla (principal); F17.200 Nicotine dependence, unspecified, uncomplicated; E11.9 Type 2 diabetes mellitus without complications
CPT/HCPCS: 99282

== ENCOUNTER 2018-11-18 14:24 | Emergency (ER) | payer SELFPAY ==
[2018-11-18] MEDS ORDERED: ACETAMINOPHEN 325 MG TABLET PO ONE (14:44)
[2018-11-18] MEDS ORDERED: NORMAL SALINE 1000 ML 1,000 ML IV ONE (14:51)
--- NOTE | 2018-11-18 14:55 | ER Document Report ---
ED Medical Screen (RME) - General Chief Complaint: High Blood Sugar Stated Complaint: SHAKING Time Seen by Provider: 11/18/18 14:42 Notes: Patient is a 23-year-old female who presents the emergency department with a chief complaint of high blood sugar and shaking. At home her blood sugar was in the 230s. Patient states that she is a diabetic and is supposed to be on Trulicity but is not on it because she cannot afford it. She was going to [facility] but has not been there a while. In triage, the patient's temperature was 103. Denies any cough, dysuria, abdominal pain, chest pain, or any other symptoms. Exam: Skin warm to touch. Rigors noted. I have greeted and performed a rapid initial assessment of this patient. A comprehensive ED assessment and evaluation of the patient, analysis of test results and completion of medical decision making process will be conducted by an additional ED providers. TRAVEL OUTSIDE OF THE [place] IN LAST 30 DAYS: No - Related Data Allergies/Adverse Reactions: No Known Allergies Allergy (Verified 11/18/18 14:25) Past Medical History Endocrine Medical History: Reports: Hx Diabetes Mellitus Type 2 Renal/ Medical History: Denies: Hx Peritoneal Dialysis - Immunizations Immunizations up to date: Yes Hx Diphtheria, Pertussis, Tetanus Vaccination: Yes Physical Exam - Vital signs Vitals: Temp Pulse Resp BP Pulse Ox 103.2 F H 133 H 16 141/85 H 98 11/18/18 14:41 11/18/18 14:41 11/18/18 14:41 11/18/18 14:41 11/18/18 14:41 Course - Vital Signs Vital signs: Temp Pulse Resp BP Pulse Ox 103.2 F H 133 H 16 141/85 H 98 11/18/18 14:41 11/18/18 14:41 11/18/18 14:41 11/18/18 14:41 11/18/18 14:41
[2018-11-18] MEDS ORDERED: RINGERS SOLUTION,LACTATED 1,000 ML IV ONE (15:14)
[2018-11-18 15:18] LABS: ABSOLUTE BASOPHILS # (AUTO) 0.1 10^3/uL (0.0-0.2); ABSOLUTE MONOCYTES (AUTO) 0.7 10^3/uL (0.1-1.4); ABSOLUTE NEUT (AUTO) 10.7 10^3/uL (1.7-8.2); BASOPHILS % (AUTO) 0.4 % (0-2); EOSINOPHILS % (AUTO) 0.2 % (0-6); HEMATOCRIT 41.9 % (36.0-47.0); HEMOGLOBIN 13.7 g/dL (12.0-15.5); MEAN CORPUSCULAR HEMOGLOBIN 26.3 pg (27.0-33.4); MEAN CORPUSCULAR HGB CONC 32.8 g/dL (32.0-36.0); MEAN CORPUSCULAR VOLUME 80 fl (80-97); MONOCYTES % (AUTO) 5.5 % (3-13); PLATELET COUNT 225 10^3/uL (150-450); RED BLOOD COUNT 5.21 10^6/uL (3.72-5.28); RED CELL DISTRIBUTION WIDTH 13.9 % (11.5-14.0); SEGMENTED NEUTROPHILS % (AUTO) 85.9 % (42-78); TOTAL CELLS COUNTED % (AUTO) 100 %; WHITE BLOOD COUNT 12.5 10^3/uL (4.0-10.5)
[2018-11-18 15:19] LABS: VENOUS BLOOD BASE EXCESS 2.1 mmol/L; VENOUS BLOOD HCO3 27.7 mmol/L (20-32); VENOUS BLOOD PCO2 46.5 mmHg (35-63); VENOUS BLOOD PH 7.39 (7.30-7.42)
--- NOTE | 2018-11-18 15:24 | ER Document Report ---
ED General - General Chief Complaint: High Blood Sugar Stated Complaint: SHAKING Time Seen by Provider: 11/18/18 14:42 Primary Care Provider: [facility] [Provider Group] - Follow up in 3-5 days Notes: Patient is a 23 year old female with [id number] diabetes mellitus that presents to the emergency department for chief complaint of shaking. Patient states that she woke up from a nap this afternoon, and states that she was uncontrollably shaking, and felt her heart racing and she is not sure why. She denies feeling febrile, was noted to have a fever in triage. She denies any recent cough, shortness of breath, nausea, vomiting, abdominal pain, chest pain, difficulty breathing. She also denies having any dysuria, hematuria, urinary frequency or urgency, denies any flank pain, diarrhea, or any other symptoms at this time. She otherwise has no complaints. She states she was prescribed medication for her diabetes but is not currently taking anything, states that her blood sugar today was just over 200. Past Medical History: Diabetes mellitus Past Surgical History: I&D of abscess Social History: Denies tobacco, alcohol or drug use. Family History: Reviewed and noncontributory for presenting illness Allergies: Reviewed, see documented allergy list. REVIEW OF SYSTEMS: Other than noted above, the 12 point review of systems was reviewed with the patient and were negative, all pertinent findings are included in the HPI. PHYSICAL EXAMINATION: Vital signs reviewed, nursing noted reviewed. GENERAL: Well-appearing, well-nourished and in no acute distress. HEAD: Atraumatic, normocephalic. EYES: Eyes appear normal, extraocular movements intact, sclera anicteric, conjunctiva are normal. ENT: nares patent, oropharynx clear without exudates. Moist mucous membranes. NECK: Normal range of motion, supple without lymphadenopathy LUNGS: Breath sounds clear to auscultation bilaterally and equal. No wheezes rales or rhonchi. HEART: Heart rate tachycardic, regular rhythm, no audible murmur ABDOMEN: Soft, nontender, normoactive bowel sounds. No rebound, guarding, or rigidity. No masses appreciated. EXTREMITIES: Nontender, good range of motion, no pitting or edema. NEUROLOGICAL: No focal neurological deficits. Moves all extremities spontaneously Motor and sensory grossly intact on exam. PSYCH: Normal mood, normal affect. SKIN: Warm, Dry, normal turgor, no rashes or lesions noted on exposed skin TRAVEL OUTSIDE OF THE [place] IN LAST 30 DAYS: No - Related Data Allergies/Adverse Reactions: No Known Allergies Allergy (Verified 11/18/18 14:25) Past Medical History - Social History Smoking Status: Unknown if Ever Smoked Family History: Arthritis, DM, Hypertension. denies: CAD, COPD, CVA, Hyper lipidemia, Malignancy, Thyroid Disfunction Patient has suicidal ideation: No Patient has homicidal ideation: No Endocrine Medical History: Reports: Hx Diabetes Mellitus Type 2 Renal/ Medical History: Denies: Hx Peritoneal Dialysis - Immunizations Immunizations up to date: Yes Hx Diphtheria, Pertussis, Tetanus Vaccination: Yes Physical Exam - Vital signs Vitals: Temp Pulse Resp BP Pulse Ox 103.2 F H 133 H 16 141/85 H 98 11/18/18 14:41 11/18/18 14:41 11/18/18 14:41 11/18/18 14:41 11/18/18 14:41 Course - Re-evaluation Re-evalutation: Patient seen and examined vital signs reviewed. Laboratory data and/or imaging were ordered as appropriate for the patient's presenting symptoms and complaint, with consideration of any critical or life threatening conditions that may be associated with their obtained history and exam as noted above. Patient was treated with IV fluid and IV ciprofloxacin after reviewing blood work and UA, that was consistent with likely pyelonephritis, and urinary tract infection, patient no leukocytosis, nitrite positive urine, will be sent for culture. Prior cultures were reviewed, and demonstrated growth of Pseudomonas in the urine, and that is why ciprofloxacin is being used. The patient was re-evaluated and was stable, heart rate had improved, blood pressure was stable Evaluation was most consistent with acute pyelonephritis, patient be discharged home on ciprofloxacin and to follow-up with the primary care. Results were discussed with the patient at this point, after careful consideration I feel that that patient can be discharged from the emergency department, the patient was educated treatments and reasons to return to the emergency department based on their presumed diagnosis as noted above, they were advised to followup with a primary care physician in 2-3 days. Patient was agreeable to plan of care. *Note is created using voice recognition software and may contain spelling, syntax or grammatical errors. Laboratory 11/18/18 11/18/18 11/18/18 15:03 15:03 15:03 WBC 12.5 H RBC 5.21 Hgb 13.7 Hct 41.9 MCV 80 MCH 26.3 L MCHC 32.8 RDW 13.9 Plt Count 225 Seg Neutrophils % 85.9 H Lymphocytes % 8.0 L Monocytes % 5.5 Eosinophils % 0.2 Basophils % 0.4 Absolute Neutrophils 10.7 H Absolute Lymphocytes 1.0 Absolute Monocytes 0.7 Absolute Eosinophils 0.0 Absolute Basophils 0.1 VBG pH VBG pCO2 VBG HCO3 VBG Base Excess Sodium 136.5 L Potassium 4.1 Chloride 100 Carbon Dioxide 26 Anion Gap 11 BUN 10 Creatinine 0.58 Est GFR ( Amer) > 60 Est GFR (Non-Af Amer) > 60 Glucose 230 H POC Glucose Lactic Acid 1.3 Calcium 9.7 Total Bilirubin 1.0 Direct Bilirubin 0.2 Neonat Total Bilirubin Not Reportable Neonat Direct Bilirubin Not Reportable Neonat Indirect Bili Not Reportable AST 24 ALT 24 Alkaline Phosphatase 106 Total Protein 7.5 Albumin 4.3 Serum HCG, Qual Urine Color Urine Appearance Urine pH Ur Specific Combs Urine Protein Urine Glucose (UA) Urine Ketones Urine Blood Urine Nitrite Urine Bilirubin Urine Urobilinogen Ur Leukocyte Esterase Urine WBC (Auto) Urine RBC (Auto) Urine Bacteria (Auto) Urine WBC Clumps Squamous Epi Cells Auto U Non-Squamous Epis Auto Urine Ascorbic Acid Group A Strep Rapid 11/18/18 11/18/18 11/18/18 15:03 15:03 15:07 WBC RBC Hgb Hct MCV MCH MCHC RDW Plt Count Seg Neutrophils % Lymphocytes % Monocytes % Eosinophils % Basophils % Absolute Neutrophils Absolute Lymphocytes Absolute Monocytes Absolute Eosinophils Absolute Basophils VBG pH 7.39 VBG pCO2 46.5 VBG HCO3 27.7 VBG Base Excess 2.1 Sodium Potassium Chloride Carbon Dioxide Anion Gap BUN Creatinine Est GFR ( Amer) Est GFR (Non-Af Amer) Glucose POC Glucose Lactic Acid Calcium Total Bilirubin Direct Bilirubin Neonat Total Bilirubin Neonat Direct Bilirubin Neonat Indirect Bili AST ALT Alkaline Phosphatase Total Protein Albumin Serum HCG, Qual NEGATIVE Urine Color YELLOW Urine Appearance CLOUDY Urine pH 6.0 Ur Specific Combs 1.008 Urine Protein 100 H Urine Glucose (UA) 50 H Urine Ketones NEGATIVE Urine Blood LARGE H Urine Nitrite POSITIVE H Urine Bilirubin NEGATIVE Urine Urobilinogen NEGATIVE Ur Leukocyte Esterase LARGE H Urine WBC (Auto) >182 Urine RBC (Auto) 7 Urine Bacteria (Auto) TRACE Urine WBC Clumps MANY Squamous Epi Cells Auto 2 U Non-Squamous Epis Auto 2 Urine Ascorbic Acid NEGATIVE Group A Strep Rapid 11/18/18 11/18/18 15:07 15:20 WBC RBC Hgb Hct MCV MCH MCHC RDW Plt Count Seg Neutrophils % Lymphocytes % Monocytes % Eosinophils % Basophils % Absolute Neutrophils Absolute Lymphocytes Absolute Monocytes Absolute Eosinophils Absolute Basophils VBG pH VBG pCO2 VBG HCO3 VBG Base Excess Sodium Potassium Chloride Carbon Dioxide Anion Gap BUN Creatinine Est GFR ( Amer) Est GFR (Non-Af Amer) Glucose POC Glucose 207 H Lactic Acid Calcium Total Bilirubin Direct Bilirubin Neonat Total Bilirubin Neonat Direct Bilirubin Neonat Indirect Bili AST ALT Alkaline Phosphatase Total Protein Albumin Serum HCG, Qual Urine Color Urine Appearance Urine pH Ur Specific Combs Urine Protein Urine Glucose (UA) Urine Ketones Urine Blood Urine Nitrite Urine Bilirubin Urine Urobilinogen Ur Leukocyte Esterase Urine WBC (Auto) Urine RBC (Auto) Urine Bacteria (Auto) Urine WBC Clumps Squamous Epi Cells Auto U Non-Squamous Epis Auto Urine Ascorbic Acid Group A Strep Rapid NEGATIVE Chest X-Ray 11/18/18 14:49 IMPRESSION: NO ACUTE RADIOGRAPHIC FINDING IN THE CHEST. - Vital Signs Vital signs: Temp Pulse Resp BP Pulse Ox 98.7 F 96 22 H 113/68 99 11/18/18 18:38 11/18/18 18:38 11/18/18 18:38 11/18/18 18:38 11/18/18 18:38 - Laboratory Result Diagrams: 11/18/18 15:03 11/18/18 15:03 Laboratory results interpreted by me: 11/18/18 11/18/18 11/18/18 15:03 15:03 15:07 WBC 12.5 H MCH 26.3 L Seg Neutrophils % 85.9 H Lymphocytes % 8.0 L Absolute Neutrophils 10.7 H Sodium 136.5 L Glucose 230 H POC Glucose Urine Protein 100 H Urine Glucose (UA) 50 H Urine Blood LARGE H Urine Nitrite POSITIVE H Ur Leukocyte Esterase LARGE H 11/18/18 15:20 WBC MCH Seg Neutrophils % Lymphocytes % Absolute Neutrophils Sodium Glucose POC Glucose 207 H Urine Protein Urine Glucose (UA) Urine Blood Urine Nitrite Ur Leukocyte Esterase Discharge - Discharge Clinical Impression: Acute pyelonephritis Condition: Stable Disposition: HOME, SELF-CARE Additional Instructions: Please take the entire course of antibiotics as prescribed, do not take this medication with any Tums, milk, or other products that contain calcium in them, take it by itself, and you can eat afterwards. Please follow-up with the primary care physician, to find other options for treating your diabetes. Prescriptions: RX: Ciprofloxacin HCl [Cipro 500 mg Tablet] 500 mg PO BID #20 tablet Referrals: [facility] [Provider Group] - Follow up in 3-5 days
--- NOTE | 2018-11-18 15:29 | RADIOLOGY REPORT (SQ) ---
EXAM DESCRIPTION: CHEST SINGLE VIEW COMPLETED DATE/TIME: 11/18/2018 3:22 pm REASON FOR STUDY: Fever COMPARISON: 06/15/2018 EXAM PARAMETERS: NUMBER OF VIEWS: One view. TECHNIQUE: Single frontal radiographic view of the chest acquired. RADIATION DOSE: NA LIMITATIONS: None. FINDINGS: LUNGS AND PLEURA: No opacities, masses or pneumothorax. No pleural effusion. MEDIASTINUM AND HILAR STRUCTURES: No masses. Contour normal. HEART AND VASCULAR STRUCTURES: Heart normal in size. Normal vasculature. BONES: No acute findings. HARDWARE: None in the chest. OTHER: No other significant finding. IMPRESSION: NO ACUTE RADIOGRAPHIC FINDING IN THE CHEST. TECHNICAL DOCUMENTATION: JOB ID: [id number] [employer]- All Rights Reserved Reading location - IP/workstation name: [email or web address]
[2018-11-18 15:38] LABS: ALANINE AMINOTRANSFERASE 24 U/L (9-52); ALBUMIN 4.3 g/dL (3.5-5.0); ALKALINE PHOSPHATASE 106 U/L (38-126); ANION GAP 11 (5-19); ASPARTATE AMINO TRANSFERASE 24 U/L (14-36); BILIRUBIN,DIRECT 0.2 mg/dL (0.0-0.4); BLOOD UREA NITROGEN 10 mg/dL (7-20); CALCIUM 9.7 mg/dL (8.4-10.2); CARBON DIOXIDE 26 mmol/L (22-30); CHLORIDE 100 mmol/L (98-107); GLUCOSE 230 mg/dL (75-110); POTASSIUM 4.1 mmol/L (3.6-5.0); TOTAL PROTEIN 7.5 g/dL (6.3-8.2)
[2018-11-18 15:40] LABS: APPEARANCE,URINE CLOUDY; BILIRUBIN,URINE NEGATIVE (NEGATIVE); COLOR,URINE YELLOW; GLUCOSE, URINE 50 mg/dL (NEGATIVE); KETONES,URINE NEGATIVE (NEGATIVE); LEUKOCYTE ESTERASE,URINE LARGE (NEGATIVE); NITRITE,URINE POSITIVE (NEGATIVE); PROTEIN,URINE 100 mg/dL (NEGATIVE); URINE SPECIFIC GRAVITY 1.008; UROBILINOGEN,URINE NEGATIVE mg/dL (<2.0)
[2018-11-18] MEDS ORDERED: CIPROFLOXACIN 400 MG/D5W RTU 400 MG/200 ML RTUPB IV ONE (16:10)
[2018-11-18 18:46] VITALS: BP 113/68
== END 2018-11-18 18:47 | disposition home or self-care (01) ==
LOC: ER 14:24
DX: N10 Acute pyelonephritis (principal); E11.9 Type 2 diabetes mellitus without complications; R50.9 Fever, unspecified; R00.0 Tachycardia, unspecified
CPT/HCPCS: 99285; 96361; 96365; 36415; 87070; 87086; 87880; 82962; 84703; 85025; 87077; 87088; 80053; 81001; 87186; 82803; 83605; 71045; J7030; J7120; J0744

== ENCOUNTER 2019-05-15 20:23 | Emergency (ER) | payer SELFPAY ==
--- NOTE | 2019-05-15 20:38 | ER Document Report ---
ED Medical Screen (RME) - General Chief Complaint: High Blood Sugar Stated Complaint: HIGH BLOOD SUGAR Time Seen by Provider: 05/15/19 20:35 Mode of Arrival: Ambulatory Information source: Patient Notes: 23-year-old female presented to ED for nausea vomiting. She states her blood sugar was 400 around 7:00. She states she is also due days late for her menstrual cycle. She states she was on Trulicity but she got her sugar down to the 90s and now she is not on anything and today her blood sugar was 400. He states she has been more thirsty than usual and frequent urination. I have greeted and performed a rapid initial assessment of this patient. A comprehensive ED assessment and evaluation of the patient, analysis of test results and completion of medical decision making process will be conducted by an additional ED providers. TRAVEL OUTSIDE OF THE [place] IN LAST 30 DAYS: No - Related Data Allergies/Adverse Reactions: No Known Allergies Allergy (Verified 11/18/18 14:25) Past Medical History Endocrine Medical History: Reports: Hx Diabetes Mellitus Type 2 Renal/ Medical History: Denies: Hx Peritoneal Dialysis - Immunizations Immunizations up to date: Yes Hx Diphtheria, Pertussis, Tetanus Vaccination: Yes Physical Exam - Vital signs Vitals: Temp Pulse Resp BP Pulse Ox 98.9 F 94 20 144/84 H 99 05/15/19 20:28 05/15/19 20:28 05/15/19 20:28 05/15/19 20:28 05/15/19 20:28 Course - Vital Signs Vital signs: Temp Pulse Resp BP Pulse Ox 98.9 F 94 20 144/84 H 99 05/15/19 20:28 05/15/19 20:28 05/15/19 20:28 05/15/19 20:28 05/15/19 20:28
[2019-05-15] MEDS ORDERED: NORMAL SALINE 1000 ML 1,000 ML IV ONE (20:39)
[2019-05-15 21:19] LABS: VENOUS BLOOD BASE EXCESS -0.7 mmol/L; VENOUS BLOOD HCO3 23.8 mmol/L (20-32); VENOUS BLOOD PCO2 39.1 mmHg (35-63); VENOUS BLOOD PH 7.4 (7.30-7.42)
[2019-05-15 21:23] LABS: ABSOLUTE EOSINOPHILS # (AUTO) 0.1 10^3/uL (0.0-0.6); ABSOLUTE LYMPHOCYTES (AUTO) 2.8 10^3/uL (0.5-4.7); ABSOLUTE MONOCYTES (AUTO) 0.9 10^3/uL (0.1-1.4); ABSOLUTE NEUT (AUTO) 5.5 10^3/uL (1.7-8.2); BASOPHILS % (AUTO) 0.4 % (0-2); EOSINOPHILS % (AUTO) 1.1 % (0-6); HEMATOCRIT 42.6 % (36.0-47.0); HEMOGLOBIN 14.3 g/dL (12.0-15.5); LYMPHOCYTES % (AUTO) 30.4 % (13-45); MEAN CORPUSCULAR HEMOGLOBIN 27.4 pg (27.0-33.4); MEAN CORPUSCULAR HGB CONC 33.5 g/dL (32.0-36.0); MEAN CORPUSCULAR VOLUME 82 fl (80-97); MONOCYTES % (AUTO) 9.6 % (3-13); PLATELET COUNT 222 10^3/uL (150-450); RED BLOOD COUNT 5.21 10^6/uL (3.72-5.28); RED CELL DISTRIBUTION WIDTH 14.4 % (11.5-14.0); SEGMENTED NEUTROPHILS % (AUTO) 58.5 % (42-78); TOTAL CELLS COUNTED % (AUTO) 100 %; WHITE BLOOD COUNT 9.3 10^3/uL (4.0-10.5)
--- NOTE | 2019-05-15 21:25 | ER Document Report ---
ED General - General Chief Complaint: Nausea Stated Complaint: HIGH BLOOD SUGAR Time Seen by Provider: 05/15/19 20:35 Primary Care Provider: [facility] [Provider Group] - Follow up in 1 week [facility] [Provider Group] - Follow up in 1 week Mode of Arrival: Ambulatory Notes: Patient is a 23-year-old female that comes to the emergency department for chief complaint of uncontrolled type 2 diabetes. She states she has been out of her Trulicity for months now, she states that today her blood sugar was reading in the 400s and she became nauseated and vomited once. She denies fevers, abdominal pain, chest pain, or any current symptoms other than frequent urination. She denies any other medical history, she denies smoking, alcohol, recreational drugs, she denies any surgeries. TRAVEL OUTSIDE OF THE [place] IN LAST 30 DAYS: No - Related Data Allergies/Adverse Reactions: No Known Allergies Allergy (Verified 11/18/18 14:25) Past Medical History - General Information source: Patient - Social History Smoking Status: Former Smoker Frequency of alcohol use: None Drug Abuse: None Lives with: Family Family History: Arthritis, DM, Hypertension. denies: CAD, COPD, CVA, Hyperlipidemia, Malignancy, Thyroid Disfunction Patient has suicidal ideation: No Patient has homicidal ideation: No Endocrine Medical History: Reports: Hx Diabetes Mellitus Type 2 Renal/ Medical History: Denies: Hx Peritoneal Dialysis - Immunizations Immunizations up to date: Yes Hx Diphtheria, Pertussis, Tetanus Vaccination: Yes Review of Systems - Review of Systems Constitutional: See HPI EENT: No symptoms reported Cardiovascular: No symptoms reported Respiratory: No symptoms reported Gastrointestinal: See HPI Genitourinary: No symptoms reported Female Genitourinary: No symptoms reported Musculoskeletal: No symptoms reported Skin: No symptoms reported Hematologic/Lymphatic: No symptoms reported Neurological/Psychological: No symptoms reported Physical Exam - Vital signs Vitals: Temp Pulse Resp BP Pulse Ox 98.9 F 94 20 144/84 H 99 05/15/19 20:28 05/15/19 20:28 05/15/19 20:28 05/15/19 20:28 05/15/19 20:28 - Notes Notes: GENERAL: Alert, interacts well. No acute distress. HEAD: Normocephalic, atraumatic. EYES: Pupils equal, round, and reactive to light. Extraocular movements intact. ENT: Oral mucosa moist, tongue midline. Oropharynx unremarkable. Airway patent. NECK: Full range of motion. Supple. Trachea midline. LUNGS: Clear to auscultation bilaterally, no wheezes, rales, or rhonchi. No respiratory distress. HEART: Regular rate and rhythm. No murmur ABDOMEN: Soft, non-tender. Non-distended. Bowel sounds present in all 4 quadrants. GENITOURINARY: Deferred EXTREMITIES: Moves all 4 extremities spontaneously. No edema, normal radial and dorsalis pedis pulses bilaterally. No cyanosis. BACK: no cervical, thoracic, lumbar midline tenderness. No saddle anesthesia, normal distal neurovascular exam. Moves all extremities in full range of motion. NEUROLOGICAL: Alert and oriented x3. Normal speech. Cranial nerves II through XII grossly intact. PSYCH: Normal affect, normal mood. SKIN: Warm, dry, normal turgor. No rashes or lesions noted. Course - Re-evaluation Re-evalutation: CBC unremarkable. Chemistry shows hyperglycemia with unremarkable anion gap and unremarkable bicarbonate. Urinalysis shows dehydration but otherwise unremarkable. test is negative. Patient asymptomatic on my evaluation and has no complaints on reevaluation. Vital signs unremarkable without tachycardia or fever. Repeat glucose downtrending nicely. I discussed with patient. She states she needs primary care referral and she was to be started on diabetes medication. She actually states she does not think she will be able to afford the previous medication, she states she is not tolerating metformin, she request for alternative. She was provided with glipizide, I discussed precautions in regards to this including hypoglycemia, I discussed the importance of her close follow-up and additional adjustments, discussed return precautions. Patient states understanding and agreement. Stable at time of discharge. - Vital Signs Vital signs: Temp Pulse Resp BP Pulse Ox 98.2 F 94 22 H 124/83 98 05/16/19 00:00 05/15/19 20:28 05/16/19 00:00 05/15/19 23:01 05/16/19 00:00 - Laboratory Result Diagrams: 05/15/19 21:03 05/15/19 21:03 Laboratory results interpreted by me: 05/15/19 05/15/19 05/15/19 21:03 21:03 21:03 RDW 14.4 H Sodium 134.0 L Chloride 97 L Creatinine 0.38 L Glucose 317 H POC Glucose Urine Glucose (UA) >=500 H Leukocyte Esterase Rfl TRACE H 05/15/19 23:31 RDW Sodium Chloride Creatinine Glucose POC Glucose 214 H Urine Glucose (UA) Leukocyte Esterase Rfl Discharge - Discharge Clinical Impression: Uncontrolled type 2 diabetes mellitus Qualifiers: Glycemic state: with hyperglycemia Qualified Code(s): E11.65 - Type 2 diabetes mellitus with hyperglycemia Condition: Stable Disposition: HOME, SELF-CARE Additional Instructions: Your blood sugar is too high, it is very important that we get your type 2 diabetes under control or you will start to have long-term damage to your body. Take the medication as prescribed daily, follow closely with one of the two clinic referrals for additional adjustment and control of your diabetes. Return if you worsen including uncontrolled vomiting, fever, or any other concerning or worsening symptoms. Prescriptions: Glipizide [Glucotrol 5 mg Tablet] 5 mg PO DAILY #30 tablet Forms: Return to Work Referrals: [facility] [Provider Group] - Follow up in 1 week [facility] [Provider Group] - Follow up in 1 week
[2019-05-15 21:27] LABS: APPEARANCE,URINE CLEAR; BILIRUBIN,URINE NEGATIVE (NEGATIVE); COLOR,URINE STRAW; GLUCOSE, URINE >=500 mg/dL (NEGATIVE); KETONES,URINE NEGATIVE (NEGATIVE); PROTEIN,URINE NEGATIVE (NEGATIVE); URINE SPECIFIC GRAVITY 1.023; UROBILINOGEN,URINE NEGATIVE mg/dL (<2.0)
[2019-05-15 21:38] LABS: ALBUMIN 4.4 g/dL (3.5-5.0); ALKALINE PHOSPHATASE 125 U/L (38-126); ANION GAP 12 (5-19); ASPARTATE AMINO TRANSFERASE 22 U/L (14-36); BILIRUBIN,DIRECT 0.3 mg/dL (0.0-0.4); BILIRUBIN,TOTAL 0.3 mg/dL (0.2-1.3); BLOOD UREA NITROGEN 8 mg/dL (7-20); CALCIUM 10.1 mg/dL (8.4-10.2); CARBON DIOXIDE 25 mmol/L (22-30); CHLORIDE 97 mmol/L (98-107); GLUCOSE 317 mg/dL (75-110); TOTAL PROTEIN 7.6 g/dL (6.3-8.2)
[2019-05-15] MEDS ORDERED: INSULIN REG, HUMAN 100 UNIT/ML 3 ML VIAL (PYX) SUBCUT ONE (21:51)
[2019-05-16 00:38] VITALS: BP 124/83
== END 2019-05-16 00:46 | disposition home or self-care (01) ==
LOC: ER 20:23
DX: E11.65 Type 2 diabetes mellitus with hyperglycemia (principal); R11.2 Nausea with vomiting, unspecified; Z87.891 Personal history of nicotine dependence
CPT/HCPCS: 99284; 96360; 96361; 36415; 87086; 82962; 84703; 85025; 80053; 81001; 82803; J1815; J7030

== ENCOUNTER 2019-05-22 17:33 | Emergency (ER) | payer SELFPAY ==
[2019-05-22] MEDS ORDERED: NORMAL SALINE 1000 ML 1,000 ML IV ONE (18:04)
--- NOTE | 2019-05-22 18:07 | ER Document Report ---
ED Medical Screen (RME) - General Chief Complaint: Headache <24 hrs old Stated Complaint: LIGHTHEADED,HEADACHE Time Seen by Provider: 05/22/19 18:01 TRAVEL OUTSIDE OF THE [place] IN LAST 30 DAYS: No - HPI Notes: 05/22/19 18:05 23-year-old female who is a type II diabetic presents emergency room for headache and a blood sugar over 300. Patient has only taken 1 dose of her glipizide that was prescribed to her last week for uncontrolled diabetes. Patient's last menstrual. Was on May 15 of this month. Reports polyuria polydipsia denies polyphagia. Denies any fevers or chills, denies any nausea vo miting chest pain shortness of breath. I have greeted and performed a rapid initial assessment of this patient. A comprehensive ED assessment and evaluation of the patient, analysis of test results and completion of the medical decision making process will be conducted by additional ED providers. PHYSICAL EXAMINATION: GENERAL: Well-appearing, well-nourished and in no acute distress. HEAD: Atraumatic, normocephalic. CV: s1, s2 sinus tachycardia LUNGS: No respiratory distress Musculoskeletal: Normal range of motion NEUROLOGICAL: Normal speech, normal gait. SKIN: Warm, Dry, normal turgor, no rashes or lesions noted. 05/22/19 18:07 - Related Data Allergies/Adverse Reactions: No Known Allergies Allergy (Verified 11/18/18 14:25) Home Medications: glipizide Past Medical History Endocrine Medical History: Reports: Hx Diabetes Mellitus Type 2 Renal/ Medical History: Denies: Hx Peritoneal Dialysis - Immunizations Immunizations up to date: Yes Hx Diphtheria, Pertussis, Tetanus Vaccination: Yes Physical Exam - Vital signs Vitals: Temp Pulse Resp BP Pulse Ox 98.3 F 106 H 18 142/79 H 100 05/22/19 17:51 05/22/19 17:51 05/22/19 17:51 05/22/19 17:51 05/22/19 17:51 Course - Vital Signs Vital signs: Temp Pulse Resp BP Pulse Ox 98.3 F 106 H 18 142/79 H 100 05/22/19 17:51 05/22/19 17:51 05/22/19 17:51 05/22/19 17:51 05/22/19 17:51
[2019-05-22 18:54] LABS: ABSOLUTE BASOPHILS # (AUTO) 0.1 10^3/uL (0.0-0.2); ABSOLUTE EOSINOPHILS # (AUTO) 0.2 10^3/uL (0.0-0.6); ABSOLUTE LYMPHOCYTES (AUTO) 2.8 10^3/uL (0.5-4.7); ABSOLUTE MONOCYTES (AUTO) 0.8 10^3/uL (0.1-1.4); ABSOLUTE NEUT (AUTO) 5.7 10^3/uL (1.7-8.2); BASOPHILS % (AUTO) 0.6 % (0-2); EOSINOPHILS % (AUTO) 1.9 % (0-6); HEMATOCRIT 42.6 % (36.0-47.0); HEMOGLOBIN 14.4 g/dL (12.0-15.5); LYMPHOCYTES % (AUTO) 29.1 % (13-45); MEAN CORPUSCULAR HEMOGLOBIN 27.7 pg (27.0-33.4); MEAN CORPUSCULAR HGB CONC 33.9 g/dL (32.0-36.0); MEAN CORPUSCULAR VOLUME 82 fl (80-97); MONOCYTES % (AUTO) 8.2 % (3-13); PLATELET COUNT 231 10^3/uL (150-450); RED BLOOD COUNT 5.21 10^6/uL (3.72-5.28); RED CELL DISTRIBUTION WIDTH 14.5 % (11.5-14.0); SEGMENTED NEUTROPHILS % (AUTO) 60.2 % (42-78); TOTAL CELLS COUNTED % (AUTO) 100 %; WHITE BLOOD COUNT 9.5 10^3/uL (4.0-10.5)
[2019-05-22 19:07] LABS: APPEARANCE,URINE CLEAR; BILIRUBIN,URINE NEGATIVE (NEGATIVE); COLOR,URINE YELLOW; GLUCOSE, URINE >=500 mg/dL (NEGATIVE); KETONES,URINE NEGATIVE (NEGATIVE); LEUKOCYTE ESTERASE,URINE TRACE (NEGATIVE); NITRITE,URINE NEGATIVE (NEGATIVE); PROTEIN,URINE NEGATIVE (NEGATIVE); URINE SPECIFIC GRAVITY 1.031; UROBILINOGEN,URINE NEGATIVE mg/dL (<2.0)
[2019-05-22 19:15] LABS: ALBUMIN 4.1 g/dL (3.5-5.0); ALKALINE PHOSPHATASE 111 U/L (38-126); ANION GAP 9 (5-19); ASPARTATE AMINO TRANSFERASE 25 U/L (14-36); BILIRUBIN,DIRECT 0.3 mg/dL (0.0-0.4); BILIRUBIN,TOTAL 0.3 mg/dL (0.2-1.3); BLOOD UREA NITROGEN 10 mg/dL (7-20); CARBON DIOXIDE 28 mmol/L (22-30); CHLORIDE 102 mmol/L (98-107); GLUCOSE 278 mg/dL (75-110); POTASSIUM 4.3 mmol/L (3.6-5.0); TOTAL PROTEIN 7.4 g/dL (6.3-8.2)
--- NOTE | 2019-05-22 19:23 | ER Document Report ---
ED General - General Chief Complaint: Headache <24 hrs old Stated Complaint: LIGHTHEADED,HEADACHE Time Seen by Provider: 05/22/19 18:01 Notes: 23-year-old female presents with nausea and frontal headache onset about an hour after taking her first dose of glipizide earlier today at work. She feels dizzy and her sugars extra high. Polydipsia and polyuria present. No belly pain. No infectious symptoms. Headache is mild and frontal. She is a history of diabetes and obesity and was just placed on glipizide last week, just got the prescription today and started it. TRAVEL OUTSIDE OF THE [place] IN LAST 30 DAYS: No - Related Data Allergies/Adverse Reactions: No Known Allergies Allergy (Verified 11/18/18 14:25) Home Medications: glipizide Past Medical History - Social History Smoking Status: Never Smoker Family History: Arthritis, DM, Hypertension. denies: CAD, COPD, CVA, Hyperlipidemia, Malignancy, Thyroid Disfunction Patient has suicidal ideation: No Patient has homicidal ideation: No Endocrine Medical History: Reports: Hx Diabetes Mellitus Type 2 Renal/ Medical History: Denies: Hx Peritoneal Dialysis - Immunizations Immunizations up to date: Yes Hx Diphtheria, Pertussis, Tetanus Vaccination: Yes Review of Systems - Review of Systems Notes: REVIEW OF SYSTEMS GEN: Denies fever, chills, weight loss ENT: Denies sore throat, nasal discharge, ear pain EYES: Denies blurry vision, eye pain, discharge CV: Denies chest pain, palpitations, edema RESP: Denies cough, shortness of breath, wheezing GI: Denies abdominal pain, nausea, vomiting, diarrhea MSK: Denies joint pain/swelling, edema, SKIN: Denies rash, skin lesions LYMPH: Denies swollen glands/lymph nodes NEURO: Headache, denies focal weakness or numbness, dizziness PSYCH: Denies depression, suicidal or homicidal ideation PHYSICAL EXAMINATION General: No acute distress, well-nourished Head: Atraumatic, normocephalic ENT: Mouth normal, oropharynx moist, no exudates or tonsillar enlargement Eyes: Conjunctiva normal, pupils equal, lids normal Neck: No JVD, supple, no guarding CVS: Normal rate, regular rhythm, no murmurs Resp: No resp distress, equal and normal breath sounds bilaterally GI: Nondistended, soft, no tenderness to palpation, no rebound or guarding Ext: No deformities, no edema, normal range of motion in upper and lower ext Back: No CVA or midline TTP Skin: No rash, warm Lymphatic: No lymphadeopathy noted Neuro: Awake, alert. Face symmetric. GCS 15. Physical Exam - Vital signs Vitals: Temp Pulse Resp BP Pulse Ox 98.3 F 106 H 18 142/79 H 100 05/22/19 17:51 05/22/19 17:51 05/22/19 17:51 05/22/19 17:51 05/22/19 17:51 Course - Re-evaluation Re-evalutation: 05/22/19 21:17 Patient presents with frontal headache after taking a new diabetes medicine. She is actually glycemic, and is likely dehydrated. She was given IV fluids. I see no abnormalities in her neurologic exam, on repeat exam she has normal cranial nerves and normal strength. No DKA Given fluidsfeeling much better I asked her to continue the glipizide because her sugars have been out of control and contact her primary care. She does have a UTI on urine and was prescribed Macrobidno signs of sepsis. I have discussed with the patient there likely diagnosis, aftercare plan, follow-up plans and my usual and customary return precautions. They verbalized understanding of this. - Vital Signs Vital signs: Temp Pulse Resp BP Pulse Ox 98.7 F 92 18 126/70 H 100 05/22/19 20:41 05/22/19 20:41 05/22/19 20:41 05/22/19 20:41 05/22/19 20:41 - Laboratory Result Diagrams: 05/22/19 18:32 05/22/19 18:32 Laboratory results interpreted by me: 05/22/19 05/22/19 05/22/19 18:32 18:32 18:32 RDW 14.5 H Creatinine 0.39 L Glucose 278 H Urine Glucose (UA) >=500 H Urine Blood SMALL H Ur Leukocyte Esterase TRACE H Discharge - Discharge Clinical Impression: Hyperglycemia Condition: Good Disposition: HOME, SELF-CARE Instructions: Hyperglycemia ([facility]), Urinary Tract Infection ([facility]) Additional Instructions: It may be because of the glipizide, and that you are having a headache and dizziness, but also could be just from your blood sugar. If you do not want to take it, do not, and call your doctor tomorrow. Prescriptions: Nitrofurantoin Macrocrystal [Nitrofurantoin] 50 mg PO BID #14 capsule Forms: Return to Work
[2019-05-22 20:39] VITALS: BP 126/70
--- NOTE | 2019-05-23 14:26 | EKG REPORT ---
SEVERITY:- ABNORMAL ECG - SINUS RHYTHM NONSPECIFIC T ABNORMALITIES, ANTERIOR LEADS : Confirmed by: Isabelle Triplett 23-May-2019 14:25:37
== END 2019-05-22 20:41 | disposition home or self-care (01) ==
LOC: ER 17:33
DX: E11.65 Type 2 diabetes mellitus with hyperglycemia (principal); R51 Headache; R42 Dizziness and giddiness; R11.0 Nausea; R63.1 Polydipsia; R35.8 Other polyuria; E66.9 Obesity, unspecified; Z79.899 Other long term (current) drug therapy
CPT/HCPCS: 93005; 36415; 82962; 85025; 81025; 80053; 81001; 93010; J7030; 96360; 99284

== ENCOUNTER 2019-07-15 13:47 | Emergency (ER) | payer OTHER ==
[2019-07-15 14:00] VITALS: BP 121/67
[2019-07-15 14:30] LABS: APPEARANCE,URINE CLEAR; BILIRUBIN,URINE NEGATIVE (NEGATIVE); COLOR,URINE STRAW; GLUCOSE, URINE >=500 mg/dL (NEGATIVE); KETONES,URINE NEGATIVE (NEGATIVE); LEUKOCYTE ESTERASE,URINE TRACE (NEGATIVE); NITRITE,URINE NEGATIVE (NEGATIVE); PROTEIN,URINE NEGATIVE (NEGATIVE); URINE SPECIFIC GRAVITY 1.032; UROBILINOGEN,URINE NEGATIVE mg/dL (<2.0)
--- NOTE | 2019-07-15 14:47 | ER Document Report ---
HPI - HPI Time Seen by Provider: 07/15/19 13:55 Onset: Just prior to arrival Onset/Duration: Waxing and waning Pain Level: 1 - REPRODUCTIVE Reproductive: DENIES: : - DERM Notes: This a 24-year-old female presented to the emergency room today stating that she has frequency urgency burning suprapubic discomfort she last had a menstrual period in the beginning of May Past Medical History - General Information source: Patient - Social History Smoking Status: Current Every Day Smoker Chew tobacco use (# tins/day): No Frequency of alcohol use: None Drug Abuse: None Family History: Arthritis, DM, Hypertension. denies: CAD, COPD, CVA, Hyperlipidemia, Malignancy, Thyroid Disfunction Patient has suicidal ideation: No Patient has homicidal ideation: No Endocrine Medical History: Reports: Hx Diabetes Mellitus Type 2 Renal/ Medical History: Denies: Hx Peritoneal Dialysis - Immunizations Immunizations up to date: Yes Hx Diphtheria, Pertussis, Tetanus Vaccination: Yes Vertical Provider Document - CONSTITUTIONAL Agree With Documented VS: Yes - INFECTION CONTROL TRAVEL OUTSIDE OF THE [place] IN LAST 30 DAYS: No - HEENT HEENT: Atraumatic, Normocephalic, PERRLA - NECK Neck: Normal Inspection - RESPIRATORY Respiratory: Breath Sounds Normal - CARDIOVASCULAR Cardiovascular: Regular Rate, Regular Rhythm - GI/ABDOMEN Gastrointestinal: Abdomen Soft, Abdomen Non-Tender - BACK Back: Normal Inspection - MUSCULOSKELETAL/EXTREMETIES Musculoskeletal/Extremeties: MAEW Course - Vital Signs Vital signs: Temp Pulse Resp BP Pulse Ox 98.9 F 87 16 121/67 92 07/15/19 13:59 07/15/19 13:59 07/15/19 13:59 07/15/19 13:59 07/15/19 13:59 - Laboratory Laboratory results interpreted by me: 07/15/19 14:00 Urine Glucose (UA) >=500 H Ur Leukocyte Esterase TRACE H 07/15/19 14:45 Labs- All tests 24 hr 07/15/19 14:00 Urine Color STRAW Urine Appearance CLEAR Urine pH 5.0 Ur Specific [place] 1.032 Urine Protein NEGATIVE Urine Glucose (UA) >=500 H Urine Ketones NEGATIVE Urine Blood NEGATIVE Urine Nitrite NEGATIVE Urine Bilirubin NEGATIVE Urine Urobilinogen NEGATIVE Ur Leukocyte Esterase TRACE H Urine WBC (Auto) 3 Urine RBC (Auto) 4 Squamous Epi Cells Auto 1 Urine Ascorbic Acid NEGATIVE Urine HCG, Qual NEGATIVE Discharge - Discharge Clinical Impression: UTI (urinary tract infection) Qualifiers: Urinary tract infection type: acute cystitis Hematuria presence: without hematuria Qualified Code(s): N30.00 - Acute cystitis without hematuria Disposition: HOME, SELF-CARE Instructions: Urinary Tract Infection ([facility]) Additional Instructions: Increase fluid intake rest follow-up with PMD in 3 to 5 days return for any change worsening. Must follow-up with [facility] within 3 to 4 days. Prescriptions: Nitrofurantoin Monohyd/M-Cryst [Macrobid 100 mg Capsule] 100 mg PO BID #20 cap
== END 2019-07-15 15:14 | disposition home or self-care (01) ==
LOC: ER 13:47
DX: N30.00 Acute cystitis without hematuria (principal); F17.200 Nicotine dependence, unspecified, uncomplicated; E11.9 Type 2 diabetes mellitus without complications
CPT/HCPCS: 81001; 81025; 99283

== ENCOUNTER 2019-09-18 20:41 | Emergency (ER) | payer SELFPAY ==
[2019-09-18] MEDS ORDERED: NORMAL SALINE 1000 ML 1,000 ML IV ONE (21:45)
--- NOTE | 2019-09-18 21:46 | ER Document Report ---
ED Medical Screen (RME) - General Chief Complaint: Skin Problem Stated Complaint: LEFT SIDED AXILLARY SWELLING Time Seen by Provider: 09/18/19 21:41 Mode of Arrival: Ambulatory Information source: Patient Notes: Patient with abscess to the left axilla for the past 4 days. Patient does have a history of diabetes. Patient states that she has required conscious sedation for drainage in the past and suspects the same today. Patient reports blood sugar was 110 at home. I have greeted and performed a rapid initial assessment of this patient. A comprehensive ED assessment and evaluation of the patient, analysis of test results and completion of the medical decision making process will be conducted by additional ED providers. TRAVEL OUTSIDE OF THE [place] IN LAST 30 DAYS: No - Related Data Allergies/Adverse Reactions: No Known Allergies Allergy (Verified 09/18/19 21:39) Past Medical History Endocrine Medical History: Reports: Hx Diabetes Mellitus Type 2 Renal/ Medical History: Denies: Hx Peritoneal Dialysis - Immunizations Immunizations up to date: Yes Hx Diphtheria, Pertussis, Tetanus Vaccination: Yes Physical Exam - Vital signs Vitals: Temp Pulse Resp BP Pulse Ox 99.4 F 110 H 18 128/75 H 97 09/18/19 20:48 09/18/19 20:48 09/18/19 20:48 09/18/19 20:48 09/18/19 20:48 - General Notes: Abscess to left axilla, patient with exquisite tenderness with very minimal palpation Course - Vital Signs Vital signs: Temp Pulse Resp BP Pulse Ox 99.4 F 110 H 18 128/75 H 97 09/18/19 20:48 09/18/19 20:48 09/18/19 20:48 09/18/19 20:48 09/18/19 20:48
[2019-09-18 22:16] LABS: ABSOLUTE EOSINOPHILS # (AUTO) 0.1 10^3/uL (0.0-0.6); ABSOLUTE LYMPHOCYTES (AUTO) 2.1 10^3/uL (0.5-4.7); ABSOLUTE MONOCYTES (AUTO) 1.1 10^3/uL (0.1-1.4); ABSOLUTE NEUT (AUTO) 10.7 10^3/uL (1.7-8.2); BASOPHILS % (AUTO) 0.2 % (0-2); EOSINOPHILS % (AUTO) 0.8 % (0-6); HEMATOCRIT 41.9 % (36.0-47.0); HEMOGLOBIN 14.2 g/dL (12.0-15.5); LYMPHOCYTES % (AUTO) 14.8 % (13-45); MEAN CORPUSCULAR HEMOGLOBIN 27.3 pg (27.0-33.4); MEAN CORPUSCULAR HGB CONC 33.9 g/dL (32.0-36.0); MEAN CORPUSCULAR VOLUME 81 fl (80-97); MONOCYTES % (AUTO) 7.9 % (3-13); PLATELET COUNT 227 10^3/uL (150-450); RED CELL DISTRIBUTION WIDTH 14.3 % (11.5-14.0); SEGMENTED NEUTROPHILS % (AUTO) 76.3 % (42-78); TOTAL CELLS COUNTED % (AUTO) 100 %; WHITE BLOOD COUNT 13.9 10^3/uL (4.0-10.5)
[2019-09-18 22:30] LABS: ANION GAP 9 (5-19); BLOOD UREA NITROGEN 8 mg/dL (7-20); CALCIUM 9.4 mg/dL (8.4-10.2); CARBON DIOXIDE 27 mmol/L (22-30); CHLORIDE 101 mmol/L (98-107); GLUCOSE 244 mg/dL (75-110); POTASSIUM 4.1 mmol/L (3.6-5.0)
[2019-09-19] MEDS ORDERED: LIDOCAINE 1%/EPINEPHRINE INJ 20 ML VIAL INJ ONE (01:12)
[2019-09-19] MEDS ORDERED: MORPHINE SULFATE 10 MG/ML INJ IM ONE (01:13)
--- NOTE | 2019-09-19 01:14 | ER Document Report ---
ED General - General Chief Complaint: Abscess Stated Complaint: LEFT SIDED AXILLARY SWELLING Time Seen by Provider: 09/18/19 21:41 Mode of Arrival: Ambulatory Information source: Patient TRAVEL OUTSIDE OF THE [place] IN LAST 30 DAYS: No - HPI Onset: Other - over the last few days Onset/Duration: Gradual Quality of pain: Sharp, Throbbing Severity: Severe Pain Level: 5 Associated symptoms: Fever - low grade Exacerbated by: Movement - of left arm, Other - palpation of swollen area Relieved by: Denies Similar symptoms previously: Yes - patient had incision and drainage of abscess in same area 1 year ago Recently seen / treated by doctor: No Notes: 24 year old female with a history of DM and a prior left armpit abscess here in the ER for several days of left armpit pain, swelling, and redness. The patient endorses a low grade fever as well. The patient says she had an abscess is this area drained a year ago. The patient denies trauma to her left armpit/arm. The patient denies chills or sweats. - Related Data Allergies/Adverse Reactions: No Known Allergies Allergy (Verified 09/18/19 21:39) Past Medical History - General Information source: Patient - Social History Smoking Status: Former Smoker Frequency of alcohol use: None Drug Abuse: None Family History: Arthritis, DM, Hypertension. denies: CAD, COPD, CVA, Hyperlipidemia, Malignancy, Thyroid Disfunction Patient has homicidal ideation: No Endocrine Medical History: Reports: Hx Diabetes Mellitus Type 2 Renal/ Medical History: Denies: Hx Peritoneal Dialysis - Immunizations Immunizations up to date: Yes Hx Diphtheria, Pertussis, Tetanus Vaccination: Yes Review of Systems - Review of Systems Constitutional: Fever - low grade EENT: No symptoms reported Cardiovascular: No symptoms reported Respiratory: No symptoms reported Gastrointestinal: No symptoms reported Genitourinary: No symptoms reported Female Genitourinary: No symptoms reported Musculoskeletal: No symptoms reported Skin: Other - swollen, tender, red area in left arm pit Hematologic/Lymphatic: No symptoms reported Neurological/Psychological: No symptoms reported -: Yes All other systems reviewed and negative Physical Exam - Vital signs Vitals: Temp Pulse Resp BP Pulse Ox 99.4 F 110 H 18 128/75 H 97 09/18/19 20:48 09/18/19 20:48 09/18/19 20:48 09/18/19 20:48 09/18/19 20:48 - Notes Notes: GENERAL: Well-appearing, well-nourished and in no acute distress. HEAD: Atraumatic, normocephalic. EYES: Pupils equal round and reactive to light, extraocular movements intact, sclera anicteric, conjunctiva are normal. ENT: External ears normal, nares patent, oropharynx clear without exudates. Moist mucous membranes. NECK: Normal range of motion, supple without lymphadenopathy or JVD. LUNGS: Breath sounds clear to auscultation bilaterally and equal. No wheezes rales or rhonchi. HEART: Regular rate and rhythm without murmurs, rubs or gallops. ABDOMEN: Soft, nontender, normoactive bowel sounds. No guarding, no rebound. No masses appreciated. EXTREMITIES: Normal range of motion, no pitting or edema. No clubbing or cyanosis. NEUROLOGICAL: Cranial nerves II through XII grossly intact. Normal speech, normal gait. PSYCH: Normal mood, normal affect. SKIN: Redness, Warmth, Swelling of left arm pit (worst area is posterior to ax ialla although axialla is swollen and tender as well but not erythematous). Dry, normal turgor, no rashes or lesions noted. Course - Re-evaluation Re-evalutation: 09/19/19 02:31 The patient is a diabetic and she has a left arm pit abscess will cellulitis. Patient has had an abscess in this area before. Patient had packing placed and she was told to follow up with a Surgeon (or the ER if she cannot get in to see a surgeon) for packing removal and wound check in 3 days since she clearly has hidradenitis. Patient DCed on Doxycycline. - Vital Signs Vital signs: Temp Pulse Resp BP Pulse Ox 98.8 F 95 18 116/63 98 09/18/19 23:46 09/18/19 23:46 09/18/19 23:46 09/18/19 23:46 09/18/19 23:46 - Laboratory Result Diagrams: 09/18/19 21:53 09/18/19 21:53 Laboratory results interpreted by me: 09/18/19 09/18/19 21:53 21:53 WBC 13.9 H RDW 14.3 H Absolute Neuts (auto) 10.7 H Creatinine 0.35 L Glucose 244 H Procedures - Incision and Drainage Left Upper Arm Time completed: 02:00 Type: Complex Anesthetic type: 1% Lidocaine w/epi mL's of anesthetic: 20 Blade size: 11 I&D procedure: Betadine prep applied, Other - 1/4 inch packing placed Incision Method: Incision made by scalpel Amount/type of drainage: Large Amount of Purulent Drainage Notes: 09/19/19 02:30 Patient did not tolerate the procedure very well. It is possible not every loculation was broken up. Packing was placed after the incision and drainage. Discharge - Discharge Clinical Impression: Abscess, Hidradenitis suppurativa Condition: Stable Disposition: HOME, SELF-CARE Instructions: Abscess ([facility]) Additional Instructions: Follow up with a Surgeon such as Dr. Amador or one of his colleagues in 3 days for a packing removal and wound check. Take antibiotics (Doxycycline) as prescribed. Return to an ER if worse or if you cannot follow up in 3 days with a Surgeon. Use Tylenol and Motrin for pain. Prescriptions: Doxycycline Monohydrate 100 mg PO BID #20 capsule Referrals: SERGEI AMADOR MD [ACTIVE STAFF] - Follow up as needed
[2019-09-19] MEDS ORDERED: HYDROCODONE/ACETAMINOPHEN 5-325 MG TABLET PO ONE (02:22)
[2019-09-19] MEDS ORDERED: DOXYCYCLINE HYCLATE 100 MG TABLET PO ONE (02:23)
[2019-09-19 02:56] VITALS: BP 122/76
== END 2019-09-19 02:45 | disposition home or self-care (01) ==
LOC: ER 20:41
PROC: 0H9CXZZ Drainage of Left Upper Arm Skin, External Approach (ICD-10-PCS; principal; 2019-09-18)
DX: L02.412 Cutaneous abscess of left axilla (principal); L73.2 Hidradenitis suppurativa; M79.602 Pain in left arm; M79.89 Other specified soft tissue disorders; R50.9 Fever, unspecified; Z87.891 Personal history of nicotine dependence; E11.9 Type 2 diabetes mellitus without complications
CPT/HCPCS: 99283; 96372; 36415; 85025; 80048; 10060; J3490; J2270

== ENCOUNTER 2019-09-21 17:31 | Emergency (ER) | payer SELFPAY ==
[2019-09-21 17:36] VITALS: BP 125/82
--- NOTE | 2019-09-21 18:10 | ER Document Report ---
ED Suture/Wound Recheck - General Chief Complaint: Abscess Recheck Stated Complaint: ABSCESS RECHECK Time Seen by Provider: 09/21/19 18:04 Primary Care Provider: [facility] [Provider Group] - Follow up as needed Mode of Arrival: Ambulatory Information source: Patient Notes: 24-year-old female presents to ED for recheck of abscess to the left axilla. She states she was supposed to go to the surgeon today for follow-up but she did not have enough money to go to her surgeon. She is alert oriented respirations regular and unlabored speaking in full sentences. She states the abscess feels much better than it did. I did assess the abscess removed the packing irrigated the wound and redressed the wound. She will be going home. I have instructed her to irrigate the wound with the shower at least once a day we changed the dressing at least twice a day and follow-up with either the surgeon or the emergency room if she has any increase in swelling pain redness or any fever. TRAVEL OUTSIDE OF THE [place] IN LAST 30 DAYS: No - HPI Previous ED treatment: I&D of abscess Antibiotics given previously: Prescription Quality of pain: Achy, Pressure Severity: None Pain Level: Denies Symptoms since procedure: No complaints Exacerbated by: Denies Relieved by: Denies - Related Data Allergies/Adverse Reactions: No Known Allergies Allergy (Verified 09/18/19 21:39) Past Medical History - General Information source: Patient - Social History Smoking Status: Current Every Day Smoker Cigarette use (# per day): Yes Smoking Education Provided: Yes - 4 min Frequency of alcohol use: None Drug Abuse: None Lives with: Family Family History: Arthritis, DM, Hypertension. denies: CAD, COPD, CVA, Hyperlipidemia, Malignancy, Thyroid Disfunction - Past Medical History Cardiac Medical History: Reports: None Pulmonary Medical History: Reports: None EENT Medical History: Reports: None Neurological Medical History: Reports: None Endocrine Medical History: Reports: Hx Diabetes Mellitus Type 2 Renal/ Medical History: Reports: None Malignancy Medical History: Reports: None GI Medical History: Reports: None Musculoskeletal Medical History: Reports None Skin Medical History: Reports Hx Cellulitis Psychiatric Medical History: Reports: None Traumatic Medical History: Reports: None Infectious Medical History: Reports: None Surgical Hx: Negative Past Surgical History: Reports: None - Immunizations Immunizations up to date: Yes Hx Diphtheria, Pertussis, Tetanus Vaccination: Yes Review of Systems - Review of Systems Constitutional: No symptoms reported EENT: No symptoms reported Cardiovascular: No symptoms reported Respiratory: No symptoms reported Gastrointestinal: No symptoms reported Genitourinary: No symptoms reported Female Genitourinary: No symptoms reported Musculoskeletal: No symptoms reported Skin: No symptoms reported Hematologic/Lymphatic: No symptoms reported Neurological/Psychological: No symptoms reported -: Yes All other systems reviewed and negative Physical Exam - Vital signs Vitals: Temp Pulse Resp BP Pulse Ox 98.5 F 94 17 125/82 97 09/21/19 17:34 09/21/19 17:34 09/21/19 17:34 09/21/19 17:34 09/21/19 17:34 Interpretation: Normal - General General appearance: Appears well, Alert - HEENT Head: Normocephalic, Atraumatic Eyes: Normal Pupils: PERRL - Respiratory Respiratory status: No respiratory distress Chest status: Nontender Breath sounds: Normal Chest palpation: Normal - Cardiovascular Rhythm: Regular Heart sounds: Normal auscultation Murmur: No - Abdominal Inspection: Normal Distension: No distension Bowel sounds: Normal Tenderness: Nontender Organomegaly: No organomegaly - Back Back: Normal, Nontender - Extremities General upper extremity: Normal inspection, Nontender, Normal color, Normal ROM, Normal temperature General lower extremity: Normal inspection, Nontender, Normal color, Normal ROM, Normal temperature, Normal weight bearing. No: Julio Cesar's sign - Neurological Neuro grossly intact: Yes Cognition: Normal Orientation: AAOx4 [place] Coma Scale Eye Opening: Spontaneous [place] Coma Scale Verbal: Oriented [place] Coma Scale Motor: Obeys Commands [place] Coma Scale Total: 15 Speech: Normal Motor strength normal: LUE, RUE, LLE, RLE Sensory: Normal - Psychological Associated symptoms: Normal affect, Normal mood - Skin Skin Temperature: Warm Skin Moisture: Dry Skin Color: Normal Skin irregularity: Abscess - I&D was abscess several days ago. Packing removed today no redness no inflammation no swelling no pain Course - Vital Signs Vital signs: Temp Pulse Resp BP Pulse Ox 98.5 F 94 17 125/82 97 09/21/19 17:59 09/21/19 17:34 09/21/19 17:34 09/21/19 17:34 09/21/19 17:34 Discharge - Discharge Clinical Impression: Abscess re-check Condition: Stable Disposition: HOME, SELF-CARE Additional Instructions: I have removed the packing from your abscess today. These continue antibiotics until they are finished. These use the hand-held shower to the abscess at least daily preferably twice a day. Your dressing twice a day and anytime it gets wet or soiled. Follow-up with your primary doctor or the ER for any redness swelling increasing drainage fever or any increase in odor Please follow-up with the surgeon for the lymph nodes as you were instructed as soon as you can afford it. FOLLOW-UP CARE: If you have been referred to a physician for follow-up care, call the physicians office for an appointment as you were instructed or within the next two days. If you experience worsening or a significant change in your symptoms, notify the physician immediately or return to the Emergency Department at any time for re-evaluation. Forms: Smoking Cessation Education Referrals: [facility] [Provider Group] - Follow up as needed
== END 2019-09-21 18:15 | disposition home or self-care (01) ==
LOC: ER 17:31
DX: L02.412 Cutaneous abscess of left axilla (principal); F17.210 Nicotine dependence, cigarettes, uncomplicated; E11.9 Type 2 diabetes mellitus without complications
CPT/HCPCS: 99282; 99406

== ENCOUNTER 2019-11-05 11:15 | Inpatient (IN) | payer SELFPAY ==
[~2019-11-05 11:15] MED LIST: SUCCINYLCHOLINE CHLORIDE INJ 200 MG/10 ML VIAL ONE
--- NOTE | 2019-11-05 12:27 | ER Document Report ---
ED Skin Rash/Insect Bite/Abscs - General Chief Complaint: Abscess Stated Complaint: ABSCESS Time Seen by Provider: 11/05/19 12:00 Mode of Arrival: Ambulatory Information source: Patient Notes: 24-year-old female past medical history significant for diabetes not currently under treatment presents to the emergency room complaining of a possible abscess on her right buttock area that she noticed about 2 or 3 days ago. States she has a history of a previous abscess to her left axillary region that had to be opened and drained. She denies any fevers. Has not tried any warm soaks. No medications for pain. TRAVEL OUTSIDE OF THE [place] IN LAST 30 DAYS: No - Related Data Allergies/Adverse Reactions: No Known Allergies Allergy (Verified 09/18/19 21:39) Past Medical History - General Information source: Patient - Social History Smoking Status: Never Smoker Frequency of alcohol use: None Drug Abuse: None Family History: Arthritis, DM, Hypertension. denies: CAD, COPD, CVA, Hyperlipidemia, Malignancy, Thyroid Disfunction Endocrine Medical History: Reports: Hx Diabetes Mellitus Type 2 Renal/ Medical History: Denies: Hx Peritoneal Dialysis Skin Medical History: Reports Hx Cellulitis - Immunizations Immunizations up to date: Yes Hx Diphtheria, Pertussis, Tetanus Vaccination: Yes Review of Systems - Review of Systems Constitutional: No symptoms reported Cardiovascular: No symptoms reported Respiratory: No symptoms reported Gastrointestinal: No symptoms reported Musculoskeletal: No symptoms reported Skin: Other - Possible abscess Neurological/Psychological: No symptoms reported -: Yes All other systems reviewed and negative Physical Exam - Vital signs Vitals: Temp Pulse Resp BP Pulse Ox 98.7 F 103 H 16 122/83 98 11/05/19 11:22 11/05/19 11:22 11/05/19 11:22 11/05/19 11:22 11/05/19 11:22 - General General appearance: Appears well, Alert In distress: Mild - HEENT Head: Normocephalic, Atraumatic Eyes: Normal Pupils: PERRL - Respiratory Respiratory status: No respiratory distress Chest status: Nontender Breath sounds: Normal Chest palpation: Normal - Cardiovascular Rhythm: Tachycardia Heart sounds: Normal auscultation Murmur: No Friction rub: No - Abdominal Inspection: Normal Distension: No distension Bowel sounds: Normal Tenderness: Nontender Organomegaly: No organomegaly - Rectal Tenderness: Yes Hemorrhoids: None Notes: Patient with a 3 cm perirectal abscess that is palpated. On rectal exam do not appreciate abscess going through to the rectal area. - Back Back: Normal, Nontender. No: CVA tenderness - Neurological Neuro grossly intact: Yes Cognition: Normal Orientation: AAOx4 [place] Coma Scale Eye Opening: Spontaneous [place] Coma Scale Verbal: Oriented [place] Coma Scale Motor: Obeys Commands [place] Coma Scale Total: 15 Speech: Normal Motor strength normal: LUE, RUE, LLE, RLE Sensory: Normal - Skin Skin Temperature: Warm Skin Moisture: Dry Skin Color: Normal Course - Re-evaluation Re-evalutation: 11/05/19 15:13 Review findings with patient. Aware of need for admission. Patient states she is currently not being treated for her diabetes. Is supposed be on Trulicity but states does not have any insurance so she is not being seen by a primary care physician is not having her diabetes managed. Patient aware that she will be need to be admitted will be seen by general surgery as well as hospital medicine. Patient is agreeable to admission. 11/05/19 18:19 - Vital Signs Vital signs: Temp Pulse Resp BP Pulse Ox 100.5 F H 105 H 14 112/75 99 11/05/19 17:55 11/05/19 17:55 11/05/19 17:55 11/05/19 17:55 11/05/19 17:55 - Laboratory Result Diagrams: 11/05/19 13:00 11/05/19 13:00 Laboratory results interpreted by me: 11/05/19 11/05/19 13:00 13:00 WBC 13.8 H MCH 26.9 L Absolute Neuts (auto) 9.7 H Sodium 133.0 L Carbon Dioxide 21 L Creatinine 0.38 L Glucose 392 H Alkaline Phosphatase 138 H - Diagnostic Test Radiology reviewed: Reports reviewed - Consults Dr. Morales Time consulted: 15:00 Reason for consultation: 11/05/19 15:17 Perirectal abscess Consulted provider: will come to ER Fabien Bustillo Time consulted: 15:19 Reason for consultation: 11/05/19 15:19 Medical management for diabetes, per Dr. Morales will take patient to the OR for perirectal abscess Discharge - Discharge Clinical Impression: Perirectal abscess Diabetes mellitus Qualifiers: Diabetes mellitus type: type 2 Diabetes mellitus exterminator helper termite insulin use: unspecified nursing home insulin use status Diabetes mellitus complication status: with other specified complication Qualified Code(s): E11.69 - Type 2 diabetes mellitus with other specified complication Condition: Stable Disposition: ADMITTED OBSERVATION Admitting Provider: Sohail (Hospitalist) Unit Admitted: Surgical Floor
[2019-11-05 13:20] LABS: ABSOLUTE BASOPHILS # (AUTO) 0.1 10^3/uL (0.0-0.2); ABSOLUTE EOSINOPHILS # (AUTO) 0.1 10^3/uL (0.0-0.6); ABSOLUTE LYMPHOCYTES (AUTO) 2.6 10^3/uL (0.5-4.7); ABSOLUTE MONOCYTES (AUTO) 1.3 10^3/uL (0.1-1.4); ABSOLUTE NEUT (AUTO) 9.7 10^3/uL (1.7-8.2); BASOPHILS % (AUTO) 0.4 % (0-2); EOSINOPHILS % (AUTO) 0.9 % (0-6); HEMATOCRIT 41.4 % (36.0-47.0); HEMOGLOBIN 13.6 g/dL (12.0-15.5); LYMPHOCYTES % (AUTO) 18.8 % (13-45); MEAN CORPUSCULAR HEMOGLOBIN 26.9 pg (27.0-33.4); MEAN CORPUSCULAR HGB CONC 32.9 g/dL (32.0-36.0); MEAN CORPUSCULAR VOLUME 82 fl (80-97); MONOCYTES % (AUTO) 9.3 % (3-13); PLATELET COUNT 228 10^3/uL (150-450); RED BLOOD COUNT 5.06 10^6/uL (3.72-5.28); SEGMENTED NEUTROPHILS % (AUTO) 70.6 % (42-78); TOTAL CELLS COUNTED % (AUTO) 100 %; WHITE BLOOD COUNT 13.8 10^3/uL (4.0-10.5)
[2019-11-05 13:50] LABS: ALBUMIN 4.2 g/dL (3.5-5.0); ALKALINE PHOSPHATASE 138 U/L (38-126); ANION GAP 13 (5-19); ASPARTATE AMINO TRANSFERASE 26 U/L (14-36); BILIRUBIN,DIRECT 0.1 mg/dL (0.0-0.4); BILIRUBIN,TOTAL 0.8 mg/dL (0.2-1.3); BLOOD UREA NITROGEN 10 mg/dL (7-20); CALCIUM 9.2 mg/dL (8.4-10.2); CARBON DIOXIDE 21 mmol/L (22-30); CHLORIDE 99 mmol/L (98-107); GLUCOSE 392 mg/dL (75-110); POTASSIUM 4.1 mmol/L (3.6-5.0); TOTAL PROTEIN 7.3 g/dL (6.3-8.2)
--- NOTE | 2019-11-05 14:37 | RADIOLOGY REPORT (SQ) ---
EXAM DESCRIPTION: CT ABD/PELVIS WITH IV ONLY IMAGES COMPLETED DATE/TIME: 11/05/2019 2:20 pm REASON FOR STUDY: rectal abscess COMPARISON: 02/25/2017 TECHNIQUE: CT scan of the abdomen and pelvis performed using helical scanning technique with dynamic intravenous contrast injection. No oral contrast. Images reviewed with lung, soft tissue, and bone windows. Reconstructed coronal and sagittal MPR images reviewed. Delayed images for evaluation of the urinary system also acquired. All images stored on PACS. All CT scanners at this facility use dose modulation, iterative reconstruction, and/or weight based d osing when appropriate to reduce radiation dose to as low as reasonably achievable (ALARA). [facility]: Dose Right [facility]: CareDose [facility]: Dose Right [facility]: Teradose 4D [facility]: InnerWorkings CONTRAST TYPE AND DOSE: contrast/concentration: Isovue 350.00 mmol/ml; Total Contrast Delivered: 100 .0 ml; Total Saline Delivered: 72.0 ml RENAL FUNCTION: BUN 10, creatinine 0.38 RADIATION DOSE: CT Rad equipment meets quality standard of care and radiation dose reduction techniq ues were employed. CTDIvol: 13.5 - 18.0 mGy. DLP: 1936 mGy-cm.. LIMITATIONS: None. FINDINGS: LOWER CHEST: No significant findings. No nodules or infiltrates. LIVER: No focal masses. Probable fatty infiltration. SPLEEN: Normal size. No focal lesions. PANCREAS: No masses. No significant calcifications. No adjacent inflammation or peripancreatic fluid collections. Pancreatic duct not dilated. GALLBLADDER: No identified stones by CT criteria. No inflammatory changes to suggest cholecystitis. ADRENAL GLANDS: No significant masses or asymmetry. RIGHT KIDNEY AND URETER: No solid masses. No significant calcifications. No hydronephrosis or hyd roureter. LEFT KIDNEY AND URETER: No solid masses. No significant calcifications. No hydronephrosis or hydr oureter. AORTA AND VESSELS: No aneurysm. No dissection. Renal arteries, SMA, celiac without stenosis. RETROPERITONEUM: No retroperitoneal adenopathy, hemorrhage or masses. BOWEL AND PERITONEAL CAVITY: No masses or inflammatory changes. No free fluid or peritoneal masses. APPENDIX: Normal. PELVIS: Inflammatory changes along the subcutaneous tissue of the right perineum. There is a small 3 .3 x 2.6 cm defined air which may represent developing subcutaneous abscess. ABDOMINAL WALL: No masses. No hernias. BONES: No significant or acute findings. OTHER: No other significant finding. IMPRESSION: Inflammatory changes along the right perineum with probable early abscess formation. La rgest diameter is approximately 3.3 x 2.6 cm. This is best demonstrated on series 3 images 97 throug h 106. TECHNICAL DOCUMENTATION: JOB ID: [id number] Quality ID # [id number]: Final reports with documentation of one or more dose reduction techniques (e.g., Au tomated exposure control, adjustment of the mA and/or kV according to patient size, use of iterative reconstruction technique) 2010 [employer]- All Rights Reserved Reading location - IP/workstation name: [facility]
[2019-11-05] MEDS ORDERED: RINGERS SOLUTION,LACTATED 1,000 ML IV ONE (15:07)
[2019-11-05] MEDS ORDERED: AMPICILLIN SODIUM/SULBACTAM NA 3 GM in NORMAL SALINE 100 ML IV ONE (15:27)
--- NOTE | 2019-11-05 15:34 | PDOC CONSULTATION ---
Consultation Consult Date: 11/05/19 Provider Consulted: LORNE MORALES Consult reason:: Right lisandra-rectal abscess History of Present Illness History of Present Illness: SUKUMAR CORTES is a 24 year old female Presents emergency department via ground rescue complaining of is a history of swelling, perianal pain, difficulty defecating, fever decreased p.o. intake. Patient seen in emergency department found to have right perianal swelling, leukocytosis, and CT scan is consistent with perirectal abscess. Surgery was consulted, patient was advised admission to the medicine service. Past Medical History Past Medical History: Obesity, uncontrolled hyper glycemia, history of cellulitis Endocrine Medical History: Reports: Diabetes Mellitus Type 2 Past Surgical History Past Surgical History: Previous I&D of left axillary hidradenitis Social History Information Source: Patient Smoking Status: Current Some Day Smoker Electronic Cigarette use?: No Hx Recreational Drug Use: No Hx Prescription Drug Abuse: No Family History Family History: None, Arthritis, DM, Hypertension. denies: CAD, COPD, CVA, Hyperlipidemia, Malignancy, Thyroid Disfunction Parental Family History Reviewed: No Children Family History Reviewed: No Sibling(s) Family History Reviewed.: No Medication/Allergy Home Medications: Nitrofurantoin Monohyd/M-Cryst [Macrobid 100 mg Capsule] 100 mg PO BID #20 cap 07/15/19 Doxycycline Monohydrate 100 mg PO BID #20 capsule 09/19/19 Allergies/Adverse Reactions: No Known Allergies Allergy (Verified 09/18/19 21:39) Review of Systems Constitutional: PRESENT: as per HPI Eyes: ABSENT: visual disturbances Ears: ABSENT: hearing changes Gastrointestinal: PRESENT: other - Difficulty defecating due to pain Integumentary: ABSENT: rash, wounds Psychiatric: ABSENT: anxiety, depression, homidical ideation, suicidal ideation Endocrine: ABSENT: cold intolerance, heat intolerance, polydipsia, polyuria Physical Exam Vital Signs: Temp Pulse Resp BP Pulse Ox 98.7 F 103 H 16 122/83 98 11/05/19 12:09 11/05/19 11:22 11/05/19 11:22 11/05/19 11:22 11/05/19 11:22 Intake & Output 11/04/19 11/05/19 11/06/19 06:59 06:59 06:59 Weight 94.5 kg General appearance: PRESENT: mild distress, other - Patient with beads of sweat around her nose Eye exam: PRESENT: EOMI Ear exam: PRESENT: TM's normal bilaterally Mouth exam: PRESENT: dry mucosa Neck exam: PRESENT: full ROM Respiratory exam: PRESENT: rhonchi Cardiovascular exam: PRESENT: RRR Pulses: PRESENT: normal carotid pulses, normal radial pulses, normal femoral pulses GI/Abdominal exam: PRESENT: soft Rectal exam: PRESENT: other - Left lower decubitus position. There is moderate swelling about the inner aspect of the right cheek. I did not attempt to digitalize the anal rectal secondary to pain. Extremities exam: PRESENT: full ROM Musculoskeletal exam: PRESENT: full ROM Neurological exam: PRESENT: oriented to person, oriented to place, oriented to time, oriented to situation Psychiatric exam: PRESENT: appropriate affect Skin exam: PRESENT: dry Results Laboratory Results: 11/05/19 13:00 11/05/19 13:00 11/05/19 11/05/19 11/05/19 13:00 13:00 13:00 WBC 13.8 H RBC 5.06 Hgb 13.6 Hct 41.4 MCV 82 MCH 26.9 L MCHC 32.9 RDW 14.0 Plt Count 228 Seg Neutrophils % 70.6 Sodium 133.0 L Potassium 4.1 Chloride 99 Carbon Dioxide 21 L Anion Gap 13 BUN 10 Creatinine 0.38 L Est GFR ( Amer) > 60 Glucose 392 H Calcium 9.2 Total Bilirubin 0.8 AST 26 Alkaline Phosphatase 138 H Total Protein 7.3 Albumin 4.2 Serum HCG, Qual NEGATIVE Impressions: Abdomen/Pelvis CT 11/05/19 12:26 IMPRESSION: Inflammatory changes along the right perineum with probable early abscess formation. Largest diameter is approximately 3.3 x 2.6 cm. This is best demonstrated on series 3 images 97 through 106. Assessment & Plan - Diagnosis (1) Perirectal abscess Is this a current diagnosis for this admission?: Yes Plan: Impression: Acute perirectal abscess in obese, septic uncontrolled diabetic [place]ro[place] female Plan: 1. Admit to medicine service with surgery consulting; Fluid hydration, intravenous antibiotics, and insulin for hyperglycemia 2. We will take patient to the operating room for exam under anesthesia, incision drainage packing possible drain placement, date, November [address] Morales. 3. We will obtain a rapid COVID test 4. I have discussed the above with the nurse practitioner in the emergency department (2) Smoker Is this a current diagnosis for this admission?: Yes (3) Dehydration Is this a current diagnosis for this admission?: Yes (4) Sepsis Is this a current diagnosis for this admission?: Yes (5) Diabetes mellitus Qualifiers: Diabetes mellitus type: type 2 Diabetes mellitus detention insulin use: unspecified terminal computer operator insulin use status Diabetes mellitus complication status: with other specified complication Qualified Code(s): E11.69 - Type 2 diabetes mellitus with other specified complication (6) Obesity Is this a current diagnosis for this admission?: Yes - Time Time Spent: 30 to 50 Minutes Smoking Cessation Education: over 10 minutes Medications reviewed and adjusted accordingly: Yes Anticipated discharge: Home - Inpatient Certification Based on my medical assessment, after consideration of the patient's comorbidities, presenting symptoms, or acuity I expect that the services needed warrant INPATIENT care.: Yes I certify that my determination is in accordance with my understanding of Medicare's requirements for reasonable and necessary INPATIENT services [42 CFR 412.3e].: Yes Medical Necessity: Need For IV Fluids, Need for Pain Control, Need for IV Antibiotics, Need for Surgery
[2019-11-05] MEDS ORDERED: MORPHINE SULFATE 10 MG/ML INJ IV ONE (15:41)
[2019-11-05] MEDS ORDERED: ONDANSETRON HCL INJ/PF 4 MG/2 ML SDV IV ONE (15:41)
[2019-11-05] MEDS ORDERED: MAGNESIUM HYDROXIDE SUSP 30 ML UDCUP PO PRN (15:42)
[2019-11-05] MEDS ORDERED: ONDANSETRON HCL INJ/PF 4 MG/2 ML SDV IV PRN ×2 (15:42→18:44)
[2019-11-05] MEDS ORDERED: ACETAMINOPHEN 325 MG TABLET PO PRN (15:42)
[2019-11-05] MEDS ORDERED: AMPICILLIN SOD/SULBACTAM 3 GM VIAL IV ONE (16:15)
[2019-11-05] MEDS ORDERED: DEXTROSE 40% GEL 15 GM TUBE PO PRN ×2 (17:27)
[2019-11-05] MEDS ORDERED: DEXTROSE 50%-WATER 25 GM/50 ML DISP.SYRIN IV PRN ×2 (17:27)
[2019-11-05] MEDS ORDERED: GLUCAGON,HUMAN RECOMB 1 MG INJ IM PRN (17:27)
[2019-11-05] MEDS ORDERED: NORMAL SALINE 1000 ML 1,000 ML IV PRN (17:30)
[2019-11-05] MEDS ORDERED: FENTANYL CITRATE INJ/PF 100 MCG/2 ML AMPUL ONE (17:38)
[2019-11-05] MEDS ORDERED: ONDANSETRON HCL INJ/PF 4 MG/2 ML SDV ONE (17:38)
[2019-11-05] MEDS ORDERED: MIDAZOLAM 2 MG/2 ML INJ ONE (17:38)
[2019-11-05] MEDS ORDERED: DEXMEDETOMIDINE INJ 80 MCG/20 ML VIAL IV ONE (17:38)
[2019-11-05] MEDS ORDERED: PROPOFOL INJ 200 MG/20 ML VIAL IV ONE (17:39)
[2019-11-05] MEDS: PIPERACILLIN/TAZOBACTAM 3.375 GM VIAL IV SCH (17:40)
--- NOTE | 2019-11-05 17:44 | PDOC H&P ---
History of Present Illness Patient complains of: Rectal and anal pain History of Present Illness: SUKUMAR CORTES is a 24 year old female with PMH significant for DM II and multiple left axillary abscesses. Patient states that approximately 2 to 3 days ago she began to develop pain in her anal/rectal area. The pain was constant is become progressively worse over the past 2 days. It was also exacerbated with straining to have a bowel movement and it progressed to the point where she was unable to wipe herself after having a bowel movement. She denies having had any discharge from rectum as well as anal/rectal trauma. Patient denies fever, chills, nausea, vomiting, diarrhea, constipation, and abdominal pain. She does report that she has not taken any medication for her diabetes in approximately 4 to 5 months. She had been on metformin but developed significant GI distress with this medication. The dose was decreased however she continued to have diarrhea and as a result she was transitioned to Trulicity. The Trulicity was not affordable to the patient so she stopped taking it. Past Medical History Cardiac Medical History: Reports: None Pulmonary Medical History: Reports: None EENT Medical History: Reports: Eyes - Patient wears corrective lenses. States that she has lost her glasses Neurological Medical History: Reports: None Endocrine Medical History: Reports: Diabetes Mellitus Type 2 Renal/ Medical History: Reports: None Malignancy Medical History: Reports: None GI Medical History: Reports: Other - Severe diarrhea with metformin Musculoskeltal Medical History: Reports: None Skin Medical History: Reports: Other - Several left axillary abscesses Psychiatric Medical History: Reports: None Traumatic Medical History: Reports: None Hematology: Reports: None Infectious Medical History: Reports: Other Infectious History Note: Frequent abscesses Past Surgical History Past Surgical History: Reports: Other - I&D left axilla abscess Social History Lives with: Other - SO Smoking Status: Former Smoker Electronic Cigarette use?: No Frequency of Alcohol Use: None Hx Recreational Drug Use: No Hx Prescription Drug Abuse: No - Advance Directive Resuscitation Status: Full Code Family History Family History: None, Arthritis, DM, Hypertension. denies: CAD, COPD, CVA, Hyperlipidemia, Malignancy, Thyroid Disfunction Parental Family History Reviewed: Yes Children Family History Reviewed: NA Sibling(s) Family History Reviewed.: Yes Medication/Allergy Home Medications: Nitrofurantoin Monohyd/M-Cryst [Macrobid 100 mg Capsule] 100 mg PO BID #20 cap 07/15/19 Doxycycline Monohydrate 100 mg PO BID #20 capsule 09/19/19 Allergies/Adverse Reactions: No Known Allergies Allergy (Verified 09/18/19 21:39) Review of Systems Constitutional: ABSENT: chills, fatigue, fever(s), night sweats, weight loss Eyes: PRESENT: as per HPI, other - Wears corrective lenses Ears: ABSENT: hearing changes Nose, Mouth, and Throat: ABSENT: headache(s), sore throat, vertigo Cardiovascular: ABSENT: chest pain, dyspnea on exertion, edema, orthropnea, palpitations Respiratory: ABSENT: cough, dyspnea, hemoptysis, sputum Gastrointestinal: ABSENT: abdominal pain, bloating, coffee ground emesis, co nstipation, diarrhea, dysphagia, heartburn, hematemesis, hematochezia, melena, nausea, vomiting Genitourinary: ABSENT: difficulty urinating, dysuria, hematuria Musculoskeletal: ABSENT: back pain, joint swelling, muscle weakness Integumentary: ABSENT: diaphoresis, lesions, rash Neurological: ABSENT: abnormal gait, abnormal speech, confusion, dizziness, focal weakness, numbness, paresthesias, syncope, tingling, tremor(s), weakness Psychiatric: ABSENT: anxiety, depression Endocrine: PRESENT: cold intolerance. ABSENT: flushing, heat intolerance, p olydipsia, polyuria Hematologic/Lymphatic: ABSENT: easy bleeding, easy bruising Physical Exam Vital Signs: Temp Pulse Resp BP Pulse Ox 98.7 F 103 H 16 122/83 98 11/05/19 12:09 11/05/19 11:22 11/05/19 11:22 11/05/19 11:22 11/05/19 11:22 Intake & Output 11/04/19 11/05/19 11/06/19 06:59 06:59 06:59 Weight 94.5 kg General appearance: PRESENT: no acute distress, cooperative, obese, well- developed Head exam: PRESENT: atraumatic, normocephalic Eye exam: PRESENT: conjunctiva pink, EOMI Mouth exam: PRESENT: moist, tongue midline Teeth exam: ABSENT: poor dentation Neck exam: PRESENT: full ROM. ABSENT: carotid bruit, JVD Respiratory exam: PRESENT: clear to auscultation prashanth, symmetrical, unlabored. ABSENT: accessory muscle use Cardiovascular exam: PRESENT: RRR, +S1, +S2 Pulses: PRESENT: normal carotid pulses, normal radial pulses Vascular exam: PRESENT: normal capillary refill GI/Abdominal exam: PRESENT: normal bowel sounds, soft. ABSENT: guarding, rebound, tenderness Rectal exam: PRESENT: deferred, other - Sided perianal swelling. BISI deferred 2/2 pain Extremities exam: PRESENT: full ROM. ABSENT: calf tenderness Musculoskeletal exam: PRESENT: full ROM Neurological exam: PRESENT: alert, awake, oriented to person, oriented to place, oriented to time, oriented to situation, CN II-XII grossly intact Psychiatric exam: PRESENT: appropriate affect, normal mood. ABSENT: agitated, anxious Skin exam: PRESENT: dry, normal color, warm Results Laboratory Results: 11/05/19 13:00 11/05/19 13:00 11/05/19 11/05/19 11/05/19 13:00 13:00 13:00 WBC 13.8 H RBC 5.06 Hgb 13.6 Hct 41.4 MCV 82 MCH 26.9 L MCHC 32.9 RDW 14.0 Plt Count 228 Seg Neutrophils % 70.6 Sodium 133.0 L Potassium 4.1 Chloride 99 Carbon Dioxide 21 L Anion Gap 13 BUN 10 Creatinine 0.38 L Est GFR ( Amer) > 60 Glucose 392 H Calcium 9.2 Total Bilirubin 0.8 AST 26 Alkaline Phosphatase 138 H Total Protein 7.3 Albumin 4.2 Serum HCG, Qual NEGATIVE Impressions: Abdomen/Pelvis CT 11/05/19 12:26 IMPRESSION: Inflammatory changes along the right perineum with probable early abscess formation. Largest diameter is approximately 3.3 x 2.6 cm. This is best demonstrated on series 3 images 97 through 106. Assessment and Plan - Diagnosis (1) Perirectal abscess Is this a current diagnosis for this admission?: Yes Plan: Patient received dose of Unasyn in ED Start Zosyn 3.375 mg IV every 6 hours Start IVF (NS at 125 cc/h) Surgery consulted (2) Sepsis Qualifiers: Sepsis type: sepsis due to unspecified organism Severe sepsis shock status: without septic shock Is this a current diagnosis for this admission?: Yes Plan: ABX and IVF as noted above (3) Type 2 diabetes mellitus Qualifiers: Diabetes mellitus manager terminal insulin use: without manager terminal use Is this a current diagnosis for this admission?: Yes Plan: Patient has not been on any medication for her diabetes in several months Hold oral diabetes medications at this time Start FS BS with SSI correction scale (4) Hyperglycemia Is this a current diagnosis for this admission?: Yes Plan: FS BS with SSI correction scale as noted above - Time Time Spent with patient: 35 or more minutes Medications reviewed and adjusted accordingly: Yes Anticipated discharge: Home
[2019-11-05] MEDS ORDERED: BUPIVACAINE HCL 0.25 % INJ/PF (2.5 MG/1 ML) 30 ML VIAL ONE (18:20)
[2019-11-05] MEDS ORDERED: FENTANYL CITRATE INJ/PF 100 MCG/2 ML AMPUL IV PRN ×3 (18:44)
[2019-11-05] MEDS ORDERED: MEPERIDINE HCL/PF INJ 25 MG/1 ML DISP.SYRIN IV PRN (18:44)
[2019-11-05] MEDS ORDERED: DIPHENHYDRAMINE HCL 50 MG/ML VIAL IV PRN (18:44)
[2019-11-05] MEDS ORDERED: OXYCODONE-ACETAMINOPHEN 5-325 MG TABLET PO PRN ×2 (18:44)
[2019-11-05] MEDS ORDERED: PROMETHAZINE HCL INJ 25 MG/1 ML VIAL IV PRN ×2 (18:44)
[2019-11-05] MEDS ORDERED: MORPHINE SULFATE 10 MG/ML INJ IV PRN (18:44)
--- NOTE | 2019-11-05 18:53 | Operative Report ---
Operative Report DATE OF SURGERY: 11/05/19 PREOPERATIVE DIAGNOSIS: 1. Acute right lisandra-anal abscess. 2. Uncontrolled di abetes mellitus. 3. Obesity POSTOPERATIVE DIAGNOSIS: Same OPERATION: 1. Examination under anesthesia. 2. Drainage of right perianal abscess with wound packing. 3. Fecal disimpaction of the an0- rectal vault SURGEON: LORNE BROWN ANESTHESIA: GA TISSUE REMOVED OR ALTERED: Skin, necrotic infected subcutaneous tissue COMPLICATIONS: None ESTIMATED BLOOD LOSS: 10 cc INTRAOPERATIVE FINDINGS: See below PROCEDURE: The patient was taken to the preop holding her to the main operating room where general anesthesia was induced. She was placed in the prone jackknife position buttocks spread taped widely. Buttocks prepped with Betadine. Surgical plan surgical timeout were conducted. Findings are significant for an acute abscess in the patient's right lateral po sition a #11 blade was used to open the skin with the release of approximately 30 cc of foul-smelling almost feculent pus. Pus sent for Gram stain, culture and sensitivity. A generous ellipse of skin was excised. Debridement was performed using index finger and suction catheter, with removal of fat extending anteriorly and laterally. I now proceeded to remove copious quantities of thick stool from the anal rectal vault. Once this was accomplished, I irrigated out the anorectal canal, and introduced the bullet anoscope. Circumferential examination of the anorectal canal revealed no visible pathology. I now probed the abscess cavity going towards the anal canal to identify a fistula but there appeared to be none at the time of this examination. The infection extended to the surface of the external anal sphincter, and eroded some of the internal sphincter, but there was no visible entry point into the anal canal. I irrigated out the abscess cavity again and ensured that it was adequately debrided. The wound was packed with several feet of half-inch iodoform packing. Patient tolerated procedure well, dressings applied, patient rotated into the supine position, and awakened from anesthesia and taken to the recovery room in stable condition.
[2019-11-05] MEDS ORDERED: KETOROLAC TROMETHAMINE INJ/PF 30 MG/1 ML SDV IV ONE (21:00)
[2019-11-05] MEDS: DOCUSATE SODIUM 100 MG CAPSULE PO SCH (21:41)
[2019-11-05] MEDS: INSULIN LISPRO 100 UNIT/ML 3 ML VIAL SUBCUT SCH (22:29)
[2019-11-06] MEDS: PIPERACILLIN/TAZOBACTAM 3.375 GM VIAL IV SCH ×4 (00:02→17:20)
[2019-11-06] MEDS: INSULIN LISPRO 100 UNIT/ML 3 ML VIAL SUBCUT SCH ×4 (08:34→21:38)
[2019-11-06 08:58] LABS: ABSOLUTE EOSINOPHILS # (AUTO) 0.1 10^3/uL (0.0-0.6); ABSOLUTE LYMPHOCYTES (AUTO) 2.3 10^3/uL (0.5-4.7); ABSOLUTE MONOCYTES (AUTO) 1.2 10^3/uL (0.1-1.4); ABSOLUTE NEUT (AUTO) 8.8 10^3/uL (1.7-8.2); BASOPHILS % (AUTO) 0.3 % (0-2); EOSINOPHILS % (AUTO) 1.2 % (0-6); HEMATOCRIT 37.6 % (36.0-47.0); HEMOGLOBIN 12.3 g/dL (12.0-15.5); LYMPHOCYTES % (AUTO) 18.5 % (13-45); MEAN CORPUSCULAR HEMOGLOBIN 26.6 pg (27.0-33.4); MEAN CORPUSCULAR HGB CONC 32.7 g/dL (32.0-36.0); MEAN CORPUSCULAR VOLUME 81 fl (80-97); MONOCYTES % (AUTO) 9.8 % (3-13); PLATELET COUNT 219 10^3/uL (150-450); RED BLOOD COUNT 4.63 10^6/uL (3.72-5.28); SEGMENTED NEUTROPHILS % (AUTO) 70.2 % (42-78); TOTAL CELLS COUNTED % (AUTO) 100 %; WHITE BLOOD COUNT 12.6 10^3/uL (4.0-10.5)
--- NOTE | 2019-11-06 09:31 | PDOC PROGRESS REPORT ---
Subjective Progress Note for:: 11/06/19 Subjective:: 24 year old female with PMH significant for DM II and multiple left axillary abscesses. Patient states that approximately 2 to 3 days ago she began to develop pain in her anal/rectal area. The pain was constant is become progressively worse over the past 2 days. It was also exacerbated with straining to have a bowel movement and it progressed to the point where she was unable to wipe herself after having a bowel movement. She denies having had any discharge from rectum as well as anal/rectal trauma. Patient denies fever, chills, nausea, vomiting, diarrhea, constipation, and abdominal pain. She does report that she has not taken any medication for her diabetes in approximately 4 to 5 months. She had been on metformin but developed significant GI distress with this medication. The dose was decreased however she continued to have diarrhea and as a result she was transitioned to Trulicity. The Trulicity was not affordable to the patient so she stopped taking it. 11/06/1963-03-awuq-old female with history of diabetes mellitus and has history of multiple left axillary abscesses admitted with perirectal abscess. Status post incision and drainage was done by Dr. Morales yesterday. Gram stain is pending. covid test is negative. Patient is presently on IV Zosyn 3.375 g every 8 hours. Blood sugars are around 285 on insulin sliding scale hemoglobin A1c was requested. To start her on glipizide 2.5 mg p.o. twice daily at this time. Reason For Visit: PERIRECTAL ABSCESS Physical Exam Vital Signs: Temp Pulse Resp BP Pulse Ox 97.9 F 98 16 118/69 100 11/06/19 08:00 11/06/19 08:00 11/06/19 08:00 11/06/19 08:00 11/06/19 08:00 Intake & Output 11/05/19 11/06/19 11/07/19 06:59 06:59 06:59 Intake Total 1450 Output Total 20 Balance 1430 Weight 92.986 kg General appearance: PRESENT: mild distress, obese Head exam: PRESENT: atraumatic Eye exam: PRESENT: PERRLA Ear exam: PRESENT: normal external ear exam Mouth exam: PRESENT: neck supple Teeth exam: PRESENT: poor dentation Neck exam: ABSENT: carotid bruit, JVD, lymphadenopathy, thyromegaly Respiratory exam: PRESENT: clear to auscultation prashanth. ABSENT: rales, rhonchi, wheezes Cardiovascular exam: PRESENT: RRR. ABSENT: diastolic murmur, rubs, systolic murmur Pulses: PRESENT: normal dorsalis pedis pul GI/Abdominal exam: PRESENT: normal bowel sounds, soft. ABSENT: distended, guarding, mass, organolmegaly, rebound, tenderness Rectal exam: PRESENT: deferred Extremities exam: PRESENT: full ROM. ABSENT: calf tenderness, clubbing, pedal edema Neurological exam: PRESENT: alert, awake, oriented to person, oriented to place, oriented to time, oriented to situation, CN II-XII grossly intact. ABSENT: motor sensory deficit Psychiatric exam: PRESENT: appropriate affect, normal mood. ABSENT: homicidal ideation, suicidal ideation Skin exam: PRESENT: other - Patient has a open wound in the perirectal area on examination. Looks clean. Results Laboratory Results: 11/06/19 08:20 11/05/19 11/05/19 11/05/19 13:00 13:00 13:00 WBC 13.8 H RBC 5.06 Hgb 13.6 Hct 41.4 MCV 82 MCH 26.9 L MCHC 32.9 RDW 14.0 Plt Count 228 Seg Neutrophils % 70.6 Sodium 133.0 L Potassium 4.1 Chloride 99 Carbon Dioxide 21 L Anion Gap 13 BUN 10 Creatinine 0.38 L Est GFR ( Amer) > 60 Glucose 392 H Calcium 9.2 Total Bilirubin 0.8 AST 26 Alkaline Phosphatase 138 H Total Protein 7.3 Albumin 4.2 Serum HCG, Qual NEGATIVE 11/06/19 08:20 WBC 12.6 H RBC 4.63 Hgb 12.3 Hct 37.6 MCV 81 MCH 26.6 L MCHC 32.7 RDW 14.0 Plt Count 219 Seg Neutrophils % 70.2 Sodium Potassium Chloride Carbon Dioxide Anion Gap BUN Creatinine Est GFR ( Amer) Glucose Calcium Total Bilirubin AST Alkaline Phosphatase Total Protein Albumin Serum HCG, Qual Impressions: Abdomen/Pelvis CT 11/05/19 12:26 IMPRESSION: Inflammatory changes along the right perineum with probable early abscess formation. Largest diameter is approximately 3.3 x 2.6 cm. This is best demonstrated on series 3 images 97 through 106. Assessment and Plan - Diagnosis (1) Perirectal abscess Is this a current diagnosis for this admission?: Yes Plan: Patient received dose of Unasyn in ED Start Zosyn 3.375 mg IV every 6 hours Start IVF (NS at 125 cc/h) Surgery consulted 11/06/2019-patient admitted with perirectal abscess status post incision excellent drainage was done. Patient is presently on IV Zosyn. Gram stain is pending. Wound looks clean at the time of my examination this morning. To discontinue IV fluids. (2) Sepsis Qualifiers: Sepsis type: sepsis due to unspecified organism Severe sepsis shock status: without septic shock Is this a current diagnosis for this admission?: Yes Plan: ABX and IVF as noted above 11/06/2019-blood pressures are stable to discontinue IV fluids and plan is to continue IV Zosyn. Gram stain is pending at this time. (3) Diabetes mellitus Qualifiers: Diabetes mellitus type: type 2 Diabetes mellitus usp insulin use: unspecified long goods drier insulin use status Diabetes mellitus complication status: with other specified complication Qualified Code(s): E11.69 - Type 2 diabetes mellitus with other specified complication Is this a current diagnosis for this admission?: No Plan: 11/06/2019-patient has history of type 2 diabetes mellitus. Not on any medication at this time. Presently on insulin sliding scale before meals and at bedtime. Latest blood sugar is 285. To check for hemoglobin A1c and started on glipizide 2.5 mg p.o. twice daily. Diet exercise weight loss lifestyle modifications discussed with the patient. (4) Obesity Is this a current diagnosis for this admission?: No Plan: 11/06/2019 patient BMI is more than 37 diet exercise weight loss lifestyle modifications discussed with the patient a dietary consult will be requested.
[2019-11-06 09:38] LABS: ALBUMIN 3.1 g/dL (3.5-5.0); ALKALINE PHOSPHATASE 102 U/L (38-126); ANION GAP 8 (5-19); ASPARTATE AMINO TRANSFERASE 21 U/L (14-36); BLOOD UREA NITROGEN 7 mg/dL (7-20); CARBON DIOXIDE 24 mmol/L (22-30); CHLORIDE 102 mmol/L (98-107); GLUCOSE 260 mg/dL (75-110); POTASSIUM 3.5 mmol/L (3.6-5.0)
[2019-11-06] MEDS: DOCUSATE SODIUM 100 MG CAPSULE PO SCH ×2 (10:00→17:19)
--- NOTE | 2019-11-06 10:05 | PDOC PROGRESS REPORT ---
Subjective Progress Note for:: 11/06/19 Subjective:: feels better after drainage. Reason For Visit: PERIRECTAL ABSCESS Physical Exam Vital Signs: Temp Pulse Resp BP Pulse Ox 97.9 F 98 16 118/69 100 11/06/19 08:00 11/06/19 08:00 11/06/19 08:00 11/06/19 08:00 11/06/19 08:00 Intake & Output 11/05/19 11/06/19 11/07/19 06:59 06:59 06:59 Intake Total 1450 Output Total 20 Balance 1430 Weight 92.986 kg General appearance: PRESENT: no acute distress Head exam: PRESENT: normocephalic Eye exam: PRESENT: EOMI Mouth exam: PRESENT: moist Neck exam: PRESENT: full ROM Respiratory exam: PRESENT: clear to auscultation prashanth Cardiovascular exam: PRESENT: RRR Pulses: PRESENT: normal femoral pulses, normal dorsalis pedis pul Vascular exam: PRESENT: normal capillary refill Breast: PRESENT: Normal GI/Abdominal exam: PRESENT: soft Rectal exam: PRESENT: deferred, other - packing removed from perirectal abscess clean base, some surrounding swelling, no drainage Musculoskeletal exam: PRESENT: ambulatory Neurological exam: PRESENT: alert, awake, oriented to person, oriented to place Psychiatric exam: PRESENT: appropriate affect Skin exam: PRESENT: dry Results Laboratory Results: 11/06/19 08:20 11/06/19 08:20 11/05/19 11/05/19 11/05/19 13:00 13:00 13:00 WBC 13.8 H RBC 5.06 Hgb 13.6 Hct 41.4 MCV 82 MCH 26.9 L MCHC 32.9 RDW 14.0 Plt Count 228 Seg Neutrophils % 70.6 Sodium 133.0 L Potassium 4.1 Chloride 99 Carbon Dioxide 21 L Anion Gap 13 BUN 10 Creatinine 0.38 L Est GFR ( Amer) > 60 Glucose 392 H Calcium 9.2 Magnesium Total Bilirubin 0.8 AST 26 Alkaline Phosphatase 138 H Total Protein 7.3 Albumin 4.2 Serum HCG, Qual NEGATIVE 11/06/19 11/06/19 08:20 08:20 WBC 12.6 H RBC 4.63 Hgb 12.3 Hct 37.6 MCV 81 MCH 26.6 L MCHC 32.7 RDW 14.0 Plt Count 219 Seg Neutrophils % 70.2 Sodium 133.5 L Potassium 3.5 L Chloride 102 Carbon Dioxide 24 Anion Gap 8 BUN 7 Creatinine 0.39 L Est GFR ( Amer) > 60 Glucose 260 H Calcium 8.0 L Magnesium 1.7 Total Bilirubin 1.0 AST 21 Alkaline Phosphatase 102 Total Protein 6.0 L Albumin 3.1 L Serum HCG, Qual Impressions: Abdomen/Pelvis CT 11/05/19 12:26 IMPRESSION: Inflammatory changes along the right perineum with probable early abscess formation. Largest diameter is approximately 3.3 x 2.6 cm. This is best demonstrated on series 3 images 97 through 106. Assessment & Plan - Plan Summary Plan Summary: s/p i and d of perirectal abscess packing removed this am pt stable abscess cavity open, clean base pt could be discharged home on instructions for sitz baths(given) bid iwth epsome salts pt needs to f/u in surgery clinic in 7-10 days surgery will sign off at time.
[2019-11-06] MEDS ORDERED: OXYCODONE-ACETAMINOPHEN 5-325 MG TABLET PO PRN (10:12)
--- NOTE | 2019-11-06 14:29 | EKG REPORT ---
SEVERITY:- BORDERLINE ECG - SINUS TACHYCARDIA BORDERLINE T ABNORMALITIES, ANTERIOR LEADS : Confirmed by: Wily De La Garza MD 06-Nov-2019 14:28:50
[2019-11-06] MEDS ORDERED: GLIPIZIDE XL 2.5 MG TAB.ER.24 PO SCH (16:00)
[2019-11-06] MEDS ORDERED: KETOROLAC TROMETHAMINE INJ/PF 30 MG/1 ML SDV IV PRN (17:20)
[2019-11-06] MEDS ORDERED: ATORVASTATIN CALCIUM 10 MG TABLET PO SCH (22:00)
[2019-11-07] MEDS: PIPERACILLIN SODIUM/TAZOBACTAM 3.375 GM in NORMAL SALINE 100 ML IV SCH ×2 (00:39→05:38)
[2019-11-07] MEDS ORDERED: GLIPIZIDE XL 5 MG TAB.ER.24 PO SCH (08:00)
[2019-11-07] MEDS ORDERED: POTASSIUM CHLORIDE 10 MEQ TABLET.ER PO ONE (08:10)
[2019-11-07 08:37] VITALS: BP 118/69
[2019-11-07] MEDS: INSULIN LISPRO 100 UNIT/ML 3 ML VIAL SUBCUT SCH (08:38)
[2019-11-07 08:54] LABS: ABSOLUTE EOSINOPHILS # (AUTO) 0.2 10^3/uL (0.0-0.6); ABSOLUTE LYMPHOCYTES (AUTO) 2.4 10^3/uL (0.5-4.7); ABSOLUTE NEUT (AUTO) 6.6 10^3/uL (1.7-8.2); BASOPHILS % (AUTO) 0.4 % (0-2); EOSINOPHILS % (AUTO) 2.4 % (0-6); HEMOGLOBIN 13.1 g/dL (12.0-15.5); LYMPHOCYTES % (AUTO) 23.4 % (13-45); MEAN CORPUSCULAR HEMOGLOBIN 27.4 pg (27.0-33.4); MEAN CORPUSCULAR HGB CONC 33.6 g/dL (32.0-36.0); MEAN CORPUSCULAR VOLUME 81 fl (80-97); MONOCYTES % (AUTO) 9.4 % (3-13); PLATELET COUNT 231 10^3/uL (150-450); RED BLOOD COUNT 4.79 10^6/uL (3.72-5.28); RED CELL DISTRIBUTION WIDTH 14.1 % (11.5-14.0); SEGMENTED NEUTROPHILS % (AUTO) 64.4 % (42-78); TOTAL CELLS COUNTED % (AUTO) 100 %; WHITE BLOOD COUNT 10.3 10^3/uL (4.0-10.5)
[2019-11-07 09:19] LABS: ALBUMIN 3.5 g/dL (3.5-5.0); ALKALINE PHOSPHATASE 107 U/L (38-126); ANION GAP 9 (5-19); ASPARTATE AMINO TRANSFERASE 31 U/L (14-36); BILIRUBIN,TOTAL 0.6 mg/dL (0.2-1.3); BLOOD UREA NITROGEN 7 mg/dL (7-20); CALCIUM 8.9 mg/dL (8.4-10.2); CARBON DIOXIDE 23 mmol/L (22-30); CHLORIDE 106 mmol/L (98-107); GLUCOSE 166 mg/dL (75-110); TOTAL PROTEIN 6.5 g/dL (6.3-8.2)
--- NOTE | 2019-11-07 13:35 | PDOC DISCHARGE SUMMARY ---
Impression - Admit/DC Date/PCP Admission Date/Primary Care Provider: 11/05/19 16:30 [facility] Discharge Date: 11/06/19 - Discharge Diagnosis (1) Perirectal abscess Is this a current diagnosis for this admission?: Yes (2) Sepsis Is this a current diagnosis for this admission?: Yes (3) Diabetes mellitus Is this a current diagnosis for this admission?: No (4) Obesity Is this a current diagnosis for this admission?: No - Assessment Summary: (1) Perirectal abscess Is this a current diagnosis for this admission?: Yes Plan: Patient received dose of Unasyn in ED Start Zosyn 3.375 mg IV every 6 hours Start IVF (NS at 125 cc/h) Surgery consulted 11/06/2019-patient admitted with perirectal abscess status post incision excellent drainage was done. Patient is presently on IV Zosyn. Gram stain is pending. Wound looks clean at the time of my examination this morning. To discontinue IV fluids. 11[birth year]07[id number]-dbzb-old female admitted with perirectal abscess status post inci maximus and drainage. Wound cultures came back positive for gram-positive cocci and surgery signed off. Patient expressing desire to go home today given a prescription for doxycycline 100 mg p.o. twice daily for 7 days. Patient is strongly advised to follow-up with surgical clinic next week. (2) Sepsis Qualifiers: Sepsis type: sepsis due to unspecified organism Severe sepsis shock status: without septic shock Is this a current diagnosis for this admission?: Yes Plan: ABX and IVF as noted above 11/06/2019-blood pressures are stable to discontinue IV fluids and plan is to continue IV Zosyn. Gram stain is pending at this time. 11/07/2019-patient is receiving IV Zosyn until this morning for a perirectal abscess Gram stain is positive for gram-positive cocci. Final report is pending. As per the patient request given a prescription for doxycycline 100 mg p.o. twice daily for 7 days advised to follow-up with surgery clinic in 1 week. (3) Diabetes mellitus Qualifiers: Diabetes mellitus type: type 2 Diabetes mellitus superintendent terminal insulin use: unspecified alf insulin use status Diabetes mellitus complication status: with other specified complication Qualified Code(s): E11.69 - Type 2 diabetes mellitus with other specified complication Is this a current diagnosis for this admission?: No Plan: 11/06/2019-patient has history of type 2 diabetes mellitus. Not on any medication at this time. Presently on insulin sliding scale before meals and at bedtime. Latest blood sugar is 285. To check for hemoglobin A1c and started on glipizide 2.5 mg p.o. twice daily. Diet exercise weight loss lifestyle modifications discussed with the patient. 11/07/2019-patient's hemoglobin A1c is 11, given a prescription for glipizide 5 mg p.o. twice daily and insulin sliding scale. Diet exercise weight loss lifestyle modifications discussed with the patient. (4) Obesity Is this a current diagnosis for this admission?: No Plan: 11/06/2019 patient BMI is more than 37 diet exercise weight loss lifestyle modifications discussed with the patient a dietary consult will be requested. - Additional Information Resuscitation Status: Full Code Discharge Diet: Diabetic Discharge Activity: Activity As Tolerated Referrals: DAVID BANERJEE MD [ACTIVE STAFF] - 11/14/19 10:15 am (CALL THE OFFICE OF ANY QUESTIONS OR CONCERN.) [facility] [Primary Care Provider] - Prescriptions: Doxycycline Hyclate 100 mg IV BID 7 Days #14 vial Glipizide [Glucotrol Xl 5 mg Tab.er] 5 mg PO BIDACBS 30 Days #60 tab.er.[email or web address] Insulin Lispro [Humalog Insulin (Lispro) 100 unit/mL] 0 - 12 unit SUBCUT ACHS 30 Days #2 vial Home Medications: Doxycycline Hyclate 100 mg IV BID 7 Days #14 vial 11/07/19 Glipizide [Glucotrol Xl 5 mg Tab.er] 5 mg PO BIDACBS 30 Days #60 tab.er.24 11/07/19 Insulin Lispro [Humalog Insulin (Lispro) 100 unit/mL] 0 - 12 unit SUBCUT ACHS 30 Days #2 vial 11/07/19 History of Present Illiness History of Present Illness: SUKUMAR CORTES is a 24 year old female 24 year old female with PMH significant for DM II and multiple left axillary abscesses. Patient states that approximately 2 to 3 days ago she began to develop pain in her anal/rectal area. The pain was constant is become progressively worse over the past 2 days. It was also exacerbated with straining to have a bowel movement and it progressed to the point where she was unable to wipe herself after having a bowel movement. She denies having had any discharge from rectum as well as anal/rectal trauma. Patient denies fever, chills, nausea, vomiting, diarrhea, constipation, and abdominal pain. She does report that she has not taken any medication for her diabetes in approximately 4 to 5 months. She had been on metformin but developed significant GI distress with this medication. The dose was decreased however she continued to have diarrhea and as a result she was transitioned to Trulicity. The Trulicity was not affordable to the patient so she stopped taking it. Hospital Course Hospital Course: 24 year old female with PMH significant for DM II and multiple left axillary abscesses. Patient states that approximately 2 to 3 days ago she began to develop pain in her anal/rectal area. The pain was constant is become progressively worse over the past 2 days. It was also exacerbated with straining to have a bowel movement and it progressed to the point where she was unable to wipe herself after having a bowel movement. She denies having had any discharge from rectum as well as anal/rectal trauma. Patient denies fever, chills, nausea, vomiting, diarrhea, constipation, and abdominal pain. She does report that she has not taken any medication for her diabetes in approximately 4 to 5 months. She had been on metformin but developed significant GI distress with this medication. The dose was decreased however she continued to have diarrhea and as a result she was transitioned to Trulicity. The Trulicity was not affordable to the patient so she stopped taking it. 11/06/1904-51-wsqq-old female with history of diabetes mellitus and has history of multiple left axillary abscesses admitted with perirectal abscess. Status post incision and drainage was done by Dr. Morales yesterday. Gram stain is pending. covid test is negative. Patient is presently on IV Zosyn 3.375 g every 8 hours. Blood sugars are around 285 on insulin sliding scale hemoglobin A1c was requested. To start her on glipizide 2.5 mg p.o. twice daily at this time. 11/07/2019-patient is going home on p.o. doxycycline for the rectal wound. Advised to follow-up with surgical clinic next week. Wound cultures came back positive for Streptococcus a live virus, group B streptococcus, bacteroids fragilis. Distributed to tetracyclines. Went home on doxycycline. Physical Exam Vital Signs: Temp Pulse Resp BP Pulse Ox 99.0 F 95 16 118/69 100 11/07/19 08:08 11/07/19 08:08 11/07/19 08:08 11/07/19 08:08 11/07/19 08:08 Intake & Output 11/06/19 11/07/19 11/08/19 06:59 06:59 06:59 Intake Total 1450 1200 Output Total 20 Balance 1430 1200 Weight 92.986 kg 94.438 kg General appearance: PRESENT: no acute distress, morbidly obese Head exam: PRESENT: atraumatic Eye exam: PRESENT: PERRLA Mouth exam: PRESENT: moist, tongue midline Teeth exam: PRESENT: poor dentation Neck exam: ABSENT: carotid bruit, JVD, lymphadenopathy, thyromegaly Respiratory exam: PRESENT: decreased breath sounds Cardiovascular exam: PRESENT: RRR. ABSENT: diastolic murmur, rubs, systolic murmur GI/Abdominal exam: PRESENT: normal bowel sounds, soft. ABSENT: distended, guarding, mass, organolmegaly, rebound, tenderness Rectal exam: PRESENT: deferred, other - Open wound at the perirectal area looks clean and healing. Extremities exam: PRESENT: full ROM. ABSENT: calf tenderness, clubbing, pedal edema Neurological exam: PRESENT: alert, awake, oriented to person, oriented to place, oriented to time, oriented to situation, CN II-XII grossly intact. ABSENT: motor sensory deficit Psychiatric exam: PRESENT: appropriate affect, normal mood. ABSENT: homicidal ideation, suicidal ideation Results Laboratory Results: WBC 10.3 10^3/uL (4.0-10.5) 11/07/19 07:50 RBC 4.79 10^6/uL (3.72-5.28) 11/07/19 07:50 Hgb 13.1 g/dL (12.0-15.5) 11/07/19 07:50 Hct 39.0 % (36.0-47.0) 11/07/19 07:50 MCV 81 fl (80-97) 11/07/19 07:50 MCH 27.4 pg (27.0-33.4) 11/07/19 07:50 MCHC 33.6 g/dL (32.0-36.0) 11/07/19 07:50 RDW 14.1 % (11.5-14.0) H 11/07/19 07:50 Plt Count 231 10^3/uL (150-450) 11/07/19 07:50 Lymph % (Auto) 23.4 % (13-45) 11/07/19 07:50 Cataño % (Auto) 9.4 % (3-13) 11/07/19 07:50 Eos % (Auto) 2.4 % (0-6) 11/07/19 07:50 Baso % (Auto) 0.4 % (0-2) 11/07/19 07:50 Absolute Neuts (auto) 6.6 10^3/uL (1.7-8.2) 11/07/19 07:50 Absolute Lymphs (auto) 2.4 10^3/uL (0.5-4.7) 11/07/19 07:50 Absolute Monos (auto) 1.0 10^3/uL (0.1-1.4) 11/07/19 07:50 Absolute Eos (auto) 0.2 10^3/uL (0.0-0.6) 11/07/19 07:50 Absolute Basos (auto) 0.0 10^3/uL (0.0-0.2) 11/07/19 07:50 Seg Neutrophils % 64.4 % (42-78) 11/07/19 07:50 Sodium 137.7 mmol/L (137-145) 11/07/19 07:50 Potassium 4.0 mmol/L (3.6-5.0) 11/07/19 07:50 Chloride 106 mmol/L (98-107) 11/07/19 07:50 Carbon Dioxide 23 mmol/L (22-30) 11/07/19 07:50 Anion Gap 9 (5-19) 11/07/19 07:50 BUN 7 mg/dL (7-20) 11/07/19 07:50 Creatinine 0.38 mg/dL (0.52-1.25) L 11/07/19 07:50 Est GFR ( Amer) > 60 (>60) 11/07/19 07:50 Est GFR (MDRD) Non-Af > 60 (>60) 11/07/19 07:50 Glucose 166 mg/dL (75-110) H 11/07/19 07:50 POC Glucose 222 mg/dL (70-110) H 11/06/19 21:33 Hemoglobin A1c % 11.0 % (4.7-6.0) H 11/06/19 08:20 Calcium 8.9 mg/dL (8.4-10.2) 11/07/19 07:50 Magnesium 2.1 mg/dL (1.6-2.3) 11/07/19 07:50 Total Bilirubin 0.6 mg/dL (0.2-1.3) 11/07/19 07:50 Direct Bilirubin 0.0 mg/dL (0.0-0.4) 11/07/19 07:50 Neonat Total Bilirubin Not Reportable 11/07/19 07:50 Neonat Direct Bilirubin Not Reportable 11/07/19 07:50 Neonat Indirect Bili Not Reportable 11/07/19 07:50 AST 31 U/L (14-36) 11/07/19 07:50 ALT 21 U/L (<35) 11/07/19 07:50 Alkaline Phosphatase 107 U/L (38-126) 11/07/19 07:50 Total Protein 6.5 g/dL (6.3-8.2) 11/07/19 07:50 Albumin 3.5 g/dL (3.5-5.0) 11/07/19 07:50 Serum HCG, Qual NEGATIVE (NEGATIVE) 11/05/19 13:00 SARS-CoV-2 (PCR) NEGATIVE (NEGATIVE) 11/05/19 16:06 Impressions: Abdomen/Pelvis CT 11/05/19 12:26 IMPRESSION: Inflammatory changes along the right perineum with probable early abscess formation. Largest diameter is approximately 3.3 x 2.6 cm. This is best demonstrated on series 3 images 97 through 106. Plan Plan of Treatment: Patient is advised to do the daily dressing changes at home and follow-up with surgical clinic next week. Time Spent: Greater than 30 Minutes Stroke Is this a Stroke Patient?: No Acute Heart Failure - Is this a Heart Failure Patient?: No
== END 2019-11-07 09:13 | disposition home or self-care (01) | DRG 854 ==
LOC: ER 11:15 → EH 16:30 → 2N 19:28
PROVIDERS: ADMIT Internal Medicine; ATTEND Internal Medicine
PROC: 0D9P7ZZ Drainage of Rectum, Via Natural or Artificial Opening (ICD-10-PCS; principal; 2019-11-05 16:45)
DX: A41.9 Sepsis, unspecified organism (principal); K61.1 Rectal abscess; E66.9 Obesity, unspecified; E11.65 Type 2 diabetes mellitus with hyperglycemia; E86.0 Dehydration; K56.41 Fecal impaction; F17.210 Nicotine dependence, cigarettes, uncomplicated; B96.6 Bacteroides fragilis [B. fragilis] as the cause of diseases classified elsewhere; B95.1 Streptococcus, group B, as the cause of diseases classified elsewhere; Z03.818 Encounter for observation for suspected exposure to other biological agents ruled out
CPT/HCPCS: 36415; 74177; 80053; 82962; 83036; 83735; 84703; 85025; 87070; 87075; 87077; 87186; 87205; 87635; 902; 93005; 93010; 96361; 96365; 96375; 99285; C9803; J0295; J0330; J1815; J1885; J2250; J2270; J2405; J2543; J2704; J3010; J3490; J7050; J7120

== ENCOUNTER 2020-04-07 14:01 | Emergency (ER) | payer SELFPAY ==
[2020-04-07] MEDS ORDERED: RINGERS SOLUTION,LACTATED 2,000 ML IV ONE (14:58)
--- NOTE | 2020-04-07 14:59 | ER Document Report ---
ED Medical Screen (RME) - General Chief Complaint: Pain All Over Stated Complaint: PAIN ALL OVER Time Seen by Provider: 04/07/20 14:50 Primary Care Provider: JULIET CEBALLOS [Primary Care Provider] - Follow up as needed Notes: Patient is a 24-year-old female with a history of type 2 diabetes who presents the emergency department with overall body aches. Patient states that she ran out of her insulin about 3 weeks ago and ran out of her glipizide about 2 weeks ago. States that since she ran out of her insulin, she has felt these body aches. States that her blood sugars at home have been in the 500s. Exam: Sinus tachycardia. Rate 109. I have greeted and performed a rapid initial assessment of this patient. A comprehensive ED assessment and evaluation of the patient, analysis of test results and completion of medical decision making process will be conducted by an additional ED providers. TRAVEL OUTSIDE OF THE [place] IN LAST 30 DAYS: No - Related Data Allergies/Adverse Reactions: No Known Allergies Allergy (Verified 09/18/19 21:39) Past Medical History Endocrine Medical History: Reports: Hx Diabetes Mellitus Type 2 Renal/ Medical History: Denies: Hx Peritoneal Dialysis Skin Medical History: Reports Hx Cellulitis Psychiatric Medical History: Denies: Hx Depression Past Surgical History: Reports: Other - I&D left axilla abscess - Immunizations Immunizations up to date: Yes Hx Diphtheria, Pertussis, Tetanus Vaccination: Yes Physical Exam - Vital signs Vitals: Temp Pulse Resp BP Pulse Ox 98.3 F 109 H 18 135/62 H 96 04/07/20 14:22 04/07/20 14:22 04/07/20 14:22 04/07/20 14:22 04/07/20 14:22 Course - Vital Signs Vital signs: Temp Pulse Resp BP Pulse Ox 98.3 F 109 H 18 135/62 H 96 04/07/20 14:22 04/07/20 14:22 04/07/20 14:22 04/07/20 14:22 04/07/20 14:22 Doctor's Discharge - Discharge Referrals: JULIET CEBALLOS [Primary Care Provider] - Follow up as needed
[2020-04-07 15:31] LABS: ABSOLUTE EOSINOPHILS # (AUTO) 0.1 10^3/uL (0.0-0.6); ABSOLUTE LYMPHOCYTES (AUTO) 2.4 10^3/uL (0.5-4.7); ABSOLUTE MONOCYTES (AUTO) 0.8 10^3/uL (0.1-1.4); ABSOLUTE NEUT (AUTO) 5.3 10^3/uL (1.7-8.2); BASOPHILS % (AUTO) 0.4 % (0-2); EOSINOPHILS % (AUTO) 1.4 % (0-6); HEMATOCRIT 41.3 % (36.0-47.0); HEMOGLOBIN 13.3 g/dL (12.0-15.5); MEAN CORPUSCULAR HEMOGLOBIN 26.1 pg (27.0-33.4); MEAN CORPUSCULAR HGB CONC 32.2 g/dL (32.0-36.0); MEAN CORPUSCULAR VOLUME 81 fl (80-97); MONOCYTES % (AUTO) 8.9 % (3-13); PLATELET COUNT 233 10^3/uL (150-450); RED BLOOD COUNT 5.09 10^6/uL (3.72-5.28); RED CELL DISTRIBUTION WIDTH 14.3 % (11.5-14.0); SEGMENTED NEUTROPHILS % (AUTO) 61.3 % (42-78); TOTAL CELLS COUNTED % (AUTO) 100 %; WHITE BLOOD COUNT 8.7 10^3/uL (4.0-10.5)
[2020-04-07 15:34] LABS: APPEARANCE,URINE CLEAR; BILIRUBIN,URINE NEGATIVE (NEGATIVE); COLOR,URINE STRAW; GLUCOSE, URINE >=500 mg/dL (NEGATIVE); KETONES,URINE NEGATIVE (NEGATIVE); LEUKOCYTE ESTERASE,URINE SMALL (NEGATIVE); NITRITE,URINE NEGATIVE (NEGATIVE); PROTEIN,URINE NEGATIVE (NEGATIVE); URINE SPECIFIC GRAVITY 1.029; UROBILINOGEN,URINE NEGATIVE mg/dL (<2.0)
[2020-04-07 15:37] LABS: VENOUS BLOOD BASE EXCESS 1.6 mmol/L; VENOUS BLOOD HCO3 28.4 mmol/L (20-32); VENOUS BLOOD PCO2 53.3 mmHg (35-63); VENOUS BLOOD PH 7.35 (7.30-7.42)
[2020-04-07 15:50] LABS: ALBUMIN 4.1 g/dL (3.5-5.0); ALKALINE PHOSPHATASE 108 U/L (38-126); ANION GAP 9 (5-19); ASPARTATE AMINO TRANSFERASE 27 U/L (14-36); BILIRUBIN,DIRECT 0.2 mg/dL (0.0-0.4); BILIRUBIN,TOTAL 0.5 mg/dL (0.2-1.3); BLOOD UREA NITROGEN 10 mg/dL (7-20); CALCIUM 10.4 mg/dL (8.4-10.2); CARBON DIOXIDE 27 mmol/L (22-30); CHLORIDE 97 mmol/L (98-107); POTASSIUM 4.5 mmol/L (3.6-5.0); TOTAL PROTEIN 7.1 g/dL (6.3-8.2)
[2020-04-07 16:27] LABS: GLUCOSE 449 mg/dL (75-110)
--- NOTE | 2020-04-07 17:51 | ER Document Report ---
ED Blood Sugar Problem - General Chief Complaint: High Blood Sugar Stated Complaint: PAIN ALL OVER Time Seen by Provider: 04/07/20 14:50 Primary Care Provider: JULIET CEBALLOS [Primary Care Provider] - Follow up as needed Information source: Patient Notes: 04/07/20 14:51 - Nursing Note by LILI WATTS Acct Num: [id number] : 1995 Patient Age: 24 Pt arrives to triage with a steady gait. Pt states that for the last two week she has had generalized body pain. Pt reports also having a migraine yesterday. Pt reports that she is an insulin controlled diabetic who has not been taking her medications, pt reports BG has been around 500. Pt denies any other distress. pt is a&ox4 with e/u respirations. ED Medical Screen (Place Notes) - General Chief Complaint: Pain All Over Stated Complaint: PAIN ALL OVER Time Seen by Provider: 04/07/20 14:50 Primary Care Provider: [facility] JULIET PORTILLO [Primary Care Provider] - Follow up as needed Notes: Patient is a 24-year-old female with a history of type 2 diabetes who presents the emergency department with overall body aches. Patient states that she ran out of her insulin about 3 weeks ago and ran out of her glipizide about 2 weeks ago. States that since she ran out of her insulin, she has felt these body aches. States that her blood sugars at home have been in the 500s. Exam: Sinus tachycardia. Rate 109. MY NOTES 24-year-old female with chief complaint of high blood sugar migraine and noncompliant with medications. TRAVEL OUTSIDE OF THE [place] IN LAST 30 DAYS: No - Related Data Allergies/Adverse Reactions: No Known Allergies Allergy (Verified 09/18/19 21:39) Past Medical History - General Information source: Patient - Social History Smoking Status: Never Smoker Cigarette use (# per day): No Chew tobacco use (# tins/day): No Smoking Education Provided: No Frequency of alcohol use: None Drug Abuse: None Lives with: Family, Other - Patient works at [employer] Family History: Arthritis, DM, Hypertension. denies: CAD, COPD, CVA, Hyperlipidemia, Malignancy, Thyroid Disfunction Patient has suicidal ideation: No Patient has homicidal ideation: No Endocrine Medical History: Reports: Hx Diabetes Mellitus Type 2 Renal/ Medical History: Denies: Hx Peritoneal Dialysis Skin Medical History: Reports Hx Cellulitis Psychiatric Medical History: Denies: Hx Depression Past Surgical History: Reports: Other - I&D left axilla abscess - Immunizations Immunizations up to date: Yes Hx Diphtheria, Pertussis, Tetanus Vaccination: Yes Review of Systems - Review of Systems Constitutional: See HPI, Weakness EENT: No symptoms reported Cardiovascular: No symptoms reported Respiratory: No symptoms reported Gastrointestinal: No symptoms reported Genitourinary: No symptoms reported Female Genitourinary: No symptoms reported Musculoskeletal: No symptoms reported Skin: No symptoms reported Hematologic/Lymphatic: No symptoms reported Neurological/Psychological: See HPI, Headaches -: Yes All other systems reviewed and negative Physical Exam - Vital signs Vitals: Temp Pulse Resp BP Pulse Ox 98.3 F 109 H 18 135/62 H 96 04/07/20 14:22 04/07/20 14:22 04/07/20 14:22 04/07/20 14:22 04/07/20 14:22 Interpretation: Tachycardic - General General appearance: Appears well, Alert - HEENT Head: Normocephalic, Atraumatic Eyes: Normal Pupils: PERRL Sinus: Normal Nasal: Normal Mouth/Lips: Normal Mucous membranes: Normal Pharynx: Normal Neck: Normal - Respiratory Respiratory status: No respiratory distress Chest status: Nontender Breath sounds: Normal Chest palpation: Normal - Cardiovascular Rhythm: Tachycardia Heart sounds: Normal auscultation Murmur: No - Abdominal Inspection: Normal Distension: No distension Bowel sounds: Normal Tenderness: Nontender Organomegaly: No organomegaly - Rectal Hemorrhoids: Other - Deferred - Genitourinary Bimanuel exam: Other - Deferred - Back Back: Normal, Nontender - Extremities General upper extremity: Normal inspection, Nontender, Normal color, Normal ROM, Normal temperature General lower extremity: Normal inspection, Nontender, Normal color, Normal ROM, Normal temperature, Normal weight bearing. No: Julio Cesar's sign - Neurological Neuro grossly intact: Yes Cognition: Normal Orientation: AAOx4 Christina Coma Scale Eye Opening: Spontaneous Butler Coma Scale Verbal: Oriented Butler Coma Scale Motor: Obeys Commands Butler Coma Scale Total: 15 Speech: Normal Motor strength normal: LUE, RUE, LLE, RLE Sensory: Normal - Psychological Associated symptoms: Normal affect, Normal mood - Skin Skin Temperature: Warm Skin Moisture: Dry Skin Color: Normal Course - Vital Signs Vital signs: Temp Pulse Resp BP Pulse Ox 98 F 78 16 138/72 H 98 04/07/20 19:44 04/07/20 19:44 04/07/20 19:44 04/07/20 19:44 04/07/20 19:44 - Laboratory Results Result Diagrams: 04/07/20 15:05 04/07/20 15:05 Laboratory Results Interpreted: 04/07/20 04/07/20 04/07/20 14:23 14:57 15:05 MCH 26.1 L RDW 14.3 H Sodium Chloride Creatinine Glucose POC Glucose 437 H* Calcium Urine Glucose (UA) >=500 H Ur Leukocyte Esterase SMALL H 04/07/20 04/07/20 15:05 19:31 MCH RDW Sodium 132.9 L Chloride 97 L Creatinine 0.38 L Glucose 449 H* POC Glucose 232 H Calcium 10.4 H Urine Glucose (UA) Ur Leukocyte Esterase Critical Laboratory Results Reviewed: Yes Attending or Supervising Physician who Reviewed Labs: RALPH CALLOWAY JR - Radiology Results Radiology Results Interpreted: 04/07/20 20:36 Actually EKG as read by Dr. Garcia was LVH Critical Radiology Results Reviewed: Yes Attending or Supervising Physician who Reviewed Radiology: RALPH CALLOWAY JR - EKG Interpretation by Nd EKG shows normal: Sinus rhythm Rate: Normal Rhythm: NSR - Normal sinus rhythm 185 bpm and question of LVH and also noted to have no ST depression no ST elevation no T wave elevation no T wave depression and this was read by myself and I agree with the EKG and with Dr. Garcia Critical Care Note - Critical Care Note Comments: Recheck fingerstick blood sugar prior to discharge Discharge - Discharge Clinical Impression: Hyperglycemia, Non compliance w medication regimen Headache Qualifiers: Headache type: unspecified Headache chronicity pattern: unspecified pattern In tractability: not intractable Qualified Code(s): R51.9 - Headache, unspecified Condition: Stable Disposition: HOME, SELF-CARE Additional Instructions: [facility] with [facility] or [facility] for follow-up for your diabetes. Off work for 3 days as needed. Try to use regular insulin human as directed for your high blood sugar. Try to adhere to a low calorie diet except at nighttime to keep your blood sugars higher until breakfast time. Return to ER as needed. Take glipizide as directed as well. Prescriptions: Insulin Regular, Human [Afrezza] 4 unit SQ ACBRKFST #100 bottle Glipizide [Glipizide Xl] 10 mg PO DAILY #30 tab.er.24 Forms: Return to Work Referrals: [facility] [Primary Care Provider] - Follow up as needed
[2020-04-07] MEDS ORDERED: INSULIN REG, HUMAN 100 UNIT/ML 3 ML VIAL (PYX) IV ONE ×2 (18:04→18:16)
[2020-04-07] MEDS ORDERED: ACETAMINOPHEN 325 MG TABLET PO ONE (18:04)
--- NOTE | 2020-04-07 19:12 | EKG REPORT ---
SEVERITY:- ABNORMAL ECG - SINUS RHYTHM CONSIDER LEFT VENTRICULAR HYPERTROPHY : Confirmed by: Sandra De Leon MD 07-Apr-2020 19:10:58
[2020-04-07 19:45] VITALS: BP 138/72
== END 2020-04-07 19:44 | disposition home or self-care (01) ==
LOC: ER 14:01
DX: E11.65 Type 2 diabetes mellitus with hyperglycemia (principal); G43.909 Migraine, unspecified, not intractable, without status migrainosus; R00.0 Tachycardia, unspecified; R53.1 Weakness; Z91.14 Patient's other noncompliance with medication regimen
CPT/HCPCS: 93005; 99284; 96361; 96374; 36415; 82962; 85025; 80053; 81001; 82803; 93010; J1815; J7120

== ENCOUNTER 2020-04-17 09:15 | Emergency (ER) | payer SELFPAY ==
[2020-04-17] MEDS ORDERED: DOXYCYCLINE HYCLATE 100 MG TABLET PO ONE (11:21)
--- NOTE | 2020-04-17 11:29 | ER Document Report ---
ED Skin Rash/Insect Bite/Abscs - General Chief Complaint: Abscess Stated Complaint: ABSCESS Time Seen by Provider: 04/17/20 11:03 Primary Care Provider: DAVID BANERJEE MD [ACTIVE STAFF] - Follow up as needed Notes: CHIEF COMPLAINT: Possible left axillary abscess HPI: 24-year-old female presenting for tenderness in the left axillary region over the last 3 to 4 days. History of abscesses previously. States she had been referred to surgery clinic to have the lymph nodes removed but never followed up. No fever. ROS: See HPI - all other systems were reviewed and are otherwise negative Constitutional: no fever Integumentary: + rash Allergy: no hives Musculoskeletal: + extremity pain or swelling Neurological: no numbness/tingling, no weakness MEDICATIONS: I agree with the patient medications as charted by the RN. ALLERGIES: I agree with the allergies as charted by the RN. PAST MEDICAL HISTORY/PAST SURGICAL HISTORY: Reviewed and agree as charted by RN. SOCIAL HISTORY: Reviewed and agree as charted by RN. FAMILY HISTORY: No significant familial comorbid conditions directly related to patient complaint EXAM: Reviewed vital signs as charted by RN. CONSTITUTIONAL: Alert and oriented and responds appropriately to questions. Well-appearing; well-nourished HEAD: Normocephalic; atraumatic EYES: Conjunctivae clear, sclerae non-icteric ENT: normal nose; no rhinorrhea; moist mucous membranes NECK: Supple without meningismus CARD: symmetric distal pulses RESP: Normal chest excursion without splinting or tachypnea ABD/GI: non-distended BACK: The back appears normal EXT: Normal ROM in all joints; no cyanosis, no effusions, no edema SKIN: Normal color for age and race; warm; dry; good turgor; several small mobile mildly tender areas in the left axilla noted on exam. No overlying erythema no fluctuant areas. NEURO: Moves all extremities equally; Motor and sensory function intact PSYCH: The patient's mood and manner are appropriate. Grooming and personal hygiene are appropriate. MDM: 24-year-old female with possibly inflamed lymph nodes left axilla no indication for incision and drainage today. Will place patient on a course of antibiotics short course of pain medication, follow-up surgery clinic for further evaluation TRAVEL OUTSIDE OF THE [place] IN LAST 30 DAYS: No - Related Data Allergies/Adverse Reactions: No Known Allergies Allergy (Verified 04/17/20 09:51) Past Medical History - Social History Smoking Status: Never Smoker Chew tobacco use (# tins/day): No Drug Abuse: None Family History: Arthritis, DM, Hypertension. denies: CAD, COPD, CVA, Hyperlipidemia, Malignancy, Thyroid Disfunction Endocrine Medical History: Reports: Hx Diabetes Mellitus Type 2 Renal/ Medical History: Denies: Hx Peritoneal Dialysis Skin Medical History: Reports Hx Cellulitis Psychiatric Medical History: Denies: Hx Depression Past Surgical History: Reports: Other - I&D left axilla abscess - Immunizations Immunizations up to date: Yes Hx Diphtheria, Pertussis, Tetanus Vaccination: Yes Physical Exam - Vital signs Vitals: Temp Pulse Resp BP Pulse Ox 98.5 F 94 16 148/86 H 100 04/17/20 09:16 04/17/20 09:16 04/17/20 09:16 04/17/20 09:16 04/17/20 09:16 Course - Re-evaluation Re-evalutation: 04/17/20 11:31 I spoke with the patient about her medications. She has not taken her glipizide or her insulin recently and several weeks but has it on file at the pharmacy currently and states she will go pick it up today - Vital Signs Vital signs: Temp Pulse Resp BP Pulse Ox 98.5 F 94 16 148/86 H 100 04/17/20 09:16 04/17/20 09:16 04/17/20 09:16 04/17/20 09:16 04/17/20 09:16 - Laboratory Results Critical Laboratory Results Reviewed: No Critical Results - Radiology Results Critical Radiology Results Reviewed: No Critical Results Discharge - Discharge Clinical Impression: Lymphadenitis Condition: Stable Disposition: HOME, SELF-CARE Additional Instructions: Warm compresses to the left axilla is much as possible. Antibiotics as presc ribed, pain medications as prescribed, do not drive if taking narcotics for pain. Follow-up with surgery clinic for further evaluation and treatment call for appointment Prescriptions: Tramadol HCl [Ultram 50 mg Tablet] 50 mg PO Q6HP PRN #12 tab PRN Reason: Doxycycline Monohydrate 100 mg PO BID #20 capsule Referrals: DAVID BANERJEE MD [ACTIVE STAFF] - Follow up as needed
[2020-04-17 11:47] VITALS: BP 138/82
== END 2020-04-17 11:48 | disposition home or self-care (01) ==
LOC: ER 09:15
DX: I88.9 Nonspecific lymphadenitis, unspecified (principal); E11.9 Type 2 diabetes mellitus without complications
CPT/HCPCS: 82962; 99284